=== PATIENT | female | born 1985 | race Caucasian/White ===

== ENCOUNTER 2017-01-20 16:12 | Emergency (ER) | payer OTHER ==
[~2017-01-20] VITALS: Ht 167.6 cm; Wt 132.4 kg
[~2017-01-20 16:12] MED LIST: ABILIFY5 M1 PO; ANT25 PO; ATIVAN2 MG PO; AUG500 PO; CLINDAMYCIN HC300 MG PO; COL100 PO; COL250 PO; DOXEPIN HCL10 MG PO; GABAPENTIN600 M1 PO; GLU500 PO; IBUPROFEN600 MG PO; IMI6I SC; IMITREX50 MG SC; KEFLEX500 MG PO; LAC PO; LIPI10 PO; LISINOPRIL PO; LISINOPRIL40 MG PO; METFORMIN HCL1000 MG PO; METFORMIN HCL500 MG PO; MIRTAZAPINE30 M2 PO; MYCOC TOP; NEU100 PO; NOR10T PO; NORCO1 TA2 PO; PERCOCET1 TA1 PO; PERCOCET1 TA2 PO; PRAZOSIN HYDROCH1 MG; PROAIR HFA0.09 MG/A1 INH; PROPRANOLOL HCL40 MG PO; TRAMADOL HCL50 MG PO; ULT50 PO; XARELTO10 M1 PO; ZES10 PO; ZES20 PO; ZIT250 PO; ZOF4 PO; ZOLOFT100 MG PO; ZOLOFT25 MG PO; [UNRECOGNIZED DRUG - OTHER]; [UNRECOGNIZED DRUG - OTHER] PO
[2017-01-20 16:25] VITALS: BP 112/50
== END 2017-01-20 17:38 | disposition home or self-care (01) ==
LOC: ED 16:12
DX: S93.401A Sprain of unspecified ligament of right ankle, initial encounter (principal); I10 Essential (primary) hypertension; E11.9 Type 2 diabetes mellitus without complications; Z88.8 Allergy status to other drugs, medicaments and biological substances; Z79.899 Other long term (current) drug therapy; X50.1XXA Overexertion from prolonged static or awkward postures, initial encounter; Y93.9 Activity, unspecified; Y92.89 Other specified places as the place of occurrence of the external cause; Y99.8 Other external cause status

== ENCOUNTER 2017-03-02 02:56 | Emergency (ER) | payer OTHER ==
[2017-03-02 03:49] LABS: BASOPHIL % 0.6 % (0-2); PLATELET COUNT 251 x10^3mcL (130-400)
[2017-03-02 03:54] LABS: RED CELL DISTRIBUTION WIDTH 15.2 % (11.5-14.5)
[2017-03-02 03:59] LABS: microscopic required? YES; urine erythrocyte 2+ (NEGATIVE)
[2017-03-02 04:02] LABS: CALCIUM 9.1 mg/dL (8.5-10.1); CARBON DIOXIDE 24.2 mmol/L (21-32); CHLORIDE SERUM 104 mmol/L (98-107); CREATININE SERUM 0.9 mg/dL (0.6-1.0); GFR1 > 60 mL/min; GLUCOSE SERUM 312 mg/dL (74-106); POTASSIUM SERUM 3.6 mmol/L (3.5-5.1); SODIUM SERUM 140 mmol/L (136-145)
[2017-03-02 04:06] LABS: ALKALINE PHOSPHATASE 99 U/L (46-116); ALT/SGPT 37 U/L (14-59); AMYLASE 26 U/L (25-115); AST/SGOT 14 U/L (15-37); BILIRUBIN TOTAL 0.24 mg/dL (0.20-1.00); LIPASE 218 IU/L (73-393); TOTAL PROTEIN, SERUM 6.8 g/dL (6.4-8.2)
[2017-03-02 04:08] LABS: ALBUMIN 3.2 g/dL (3.4-5.0)
[2017-03-02 05:00] VITALS: BP 120/60
== END 2017-03-02 05:00 | disposition home or self-care (01) ==
LOC: ED 02:56
PROVIDERS: Emergency Medicine
DX: R10.11 Right upper quadrant pain (principal); R11.2 Nausea with vomiting, unspecified; Z88.6 Allergy status to analgesic agent; Z88.8 Allergy status to other drugs, medicaments and biological substances
CPT/HCPCS: 36415; J1885

== ENCOUNTER 2017-03-07 18:49 | Inpatient (IN) | payer OTHER ==
[~2017-03-07] VITALS: Ht 167.6 cm; Wt 133.8 kg
[2017-03-07 20:42] LABS: BASOPHIL % 0.5 % (0-2); PLATELET COUNT 225 x10^3mcL (130-400)
[2017-03-07 20:43] LABS: CHLORIDE SERUM 105 mmol/L (98-107); POTASSIUM SERUM 3.6 mmol/L (3.5-5.1); SODIUM SERUM 139 mmol/L (136-145)
[2017-03-07 20:46] LABS: RED CELL DISTRIBUTION WIDTH 15.4 % (11.5-14.5)
[2017-03-07 21:36] LABS: CARBON DIOXIDE 23.5 mmol/L (21-32); CREATININE SERUM 0.9 mg/dL (0.6-1.0); GFR1 > 60 mL/min; GLUCOSE SERUM 238 mg/dL (74-106)
[2017-03-07 21:37] LABS: ALBUMIN 3.3 g/dL (3.4-5.0); ALKALINE PHOSPHATASE 93 U/L (46-116); ALT/SGPT 31 U/L (14-59); AST/SGOT 14 U/L (15-37); BILIRUBIN TOTAL 0.22 mg/dL (0.20-1.00); LIPASE 210 IU/L (73-393); TOTAL PROTEIN, SERUM 6.9 g/dL (6.4-8.2)
[2017-03-07] MEDS ORDERED: LANTUS SOLOS100 U/M1 SC (22:42)
[2017-03-08 00:38] LABS: T3 TOTAL 1.37 ng/mL
[2017-03-08 00:41] LABS: AMYLASE 27 U/L (25-115); CHOLESTEROL 164 mg/dL (<200); PHOSPHOROUS 3.6 mg/dL (2.5-4.9)
[2017-03-08 00:42] LABS: CHOLESTEROL/HDL RATIO 5.5; HDL CHOLESTEROL 30 mg/dL (40-60); TRIGLYCERIDES 503 mg/dL (<150)
[2017-03-08 00:45] VITALS: BP 140/84
[2017-03-08 01:05] LABS: FREE T4 1.31 ng/dL (0.76-1.46); FREE THYROXINE INDEX 3.9 ug/dL (1.4-4.5); T4(THYROXINE) 11.8 ug/dL (4.7-13.3)
[2017-03-08 06:01] VITALS: BP 102/56
[2017-03-08 06:33] LABS: BASOPHIL % 0.4 % (0-2); PLATELET COUNT 193 x10^3mcL (130-400)
[2017-03-08 06:52] LABS: RED CELL DISTRIBUTION WIDTH 15.1 % (11.5-14.5)
[2017-03-08 07:09] LABS: CALCIUM 8.2 mg/dL (8.5-10.1); CARBON DIOXIDE 26.8 mmol/L (21-32); CHLORIDE SERUM 107 mmol/L (98-107); CREATININE SERUM 0.7 mg/dL (0.6-1.0); GFR1 > 60 mL/min; GLUCOSE SERUM 174 mg/dL (74-106); MAGNESIUM 1.9 mg/dL (1.8-2.4); PHOSPHOROUS 4.2 mg/dL (2.5-4.9); POTASSIUM SERUM 3.9 mmol/L (3.5-5.1); SODIUM SERUM 141 mmol/L (136-145)
[2017-03-08 10:01] VITALS: BP 130/82
[2017-03-08 15:52] VITALS: BP 105/64
[2017-03-08 18:13] VITALS: BP 135/67
[2017-03-08 21:00] VITALS: BP 108/71
[2017-03-09 07:05] VITALS: BP 101/53
[2017-03-09 09:47] VITALS: BP 135/83
[2017-03-09 10:59] LABS: BASOPHIL % 0.2 % (0-2); PLATELET COUNT 188 x10^3mcL (130-400)
[2017-03-09 11:11] LABS: RED CELL DISTRIBUTION WIDTH 14.9 % (11.5-14.5)
[2017-03-09 11:12] LABS: MAGNESIUM 1.9 mg/dL (1.8-2.4); PHOSPHOROUS 3.3 mg/dL (2.5-4.9)
[2017-03-09 11:12] LABS: ALBUMIN 2.7 g/dL (3.4-5.0); ALKALINE PHOSPHATASE 62 U/L (46-116); ALT/SGPT 98 U/L (14-59); AST/SGOT 84 U/L (15-37); CALCIUM 8.4 mg/dL (8.5-10.1); CHLORIDE SERUM 109 mmol/L (98-107); CREATININE SERUM 0.7 mg/dL (0.6-1.0); GFR1 > 60 mL/min; GLUCOSE SERUM 149 mg/dL (74-106); POTASSIUM SERUM 3.7 mmol/L (3.5-5.1); SODIUM SERUM 142 mmol/L (136-145); TOTAL PROTEIN, SERUM 5.8 g/dL (6.4-8.2)
[2017-03-09 12:52] VITALS: BP 131/89
[2017-03-09 17:57] VITALS: BP 129/78
[2017-03-09 21:43] VITALS: BP 118/72
[2017-03-10 05:15] VITALS: BP 114/55
[2017-03-10 06:13] LABS: BASOPHIL % 0.3 % (0-2); PLATELET COUNT 169 x10^3mcL (130-400)
[2017-03-10 06:30] LABS: ALKALINE PHOSPHATASE 63 U/L (46-116); ALT/SGPT 80 U/L (14-59); AST/SGOT 38 U/L (15-37); BILIRUBIN TOTAL 0.6 mg/dL (0.20-1.00); CALCIUM 8.3 mg/dL (8.5-10.1); CHLORIDE SERUM 109 mmol/L (98-107); CREATININE SERUM 0.7 mg/dL (0.6-1.0); GFR1 > 60 mL/min; GLUCOSE SERUM 137 mg/dL (74-106); POTASSIUM SERUM 3.4 mmol/L (3.5-5.1); SODIUM SERUM 143 mmol/L (136-145)
[2017-03-10 06:32] LABS: ALBUMIN 2.7 g/dL (3.4-5.0); TOTAL PROTEIN, SERUM 5.7 g/dL (6.4-8.2)
[2017-03-10 06:39] LABS: RED CELL DISTRIBUTION WIDTH 15.3 % (11.5-14.5)
[2017-03-10 10:14] VITALS: BP 126/83
[2017-03-10] MEDS ORDERED: METFORMIN HCL1000 MG PO (11:10)
[2017-03-10] MEDS ORDERED: APAP/HYDROCODON1 T13 PO (11:11)
[2017-03-10] MEDS ORDERED: COLACE100 MG PO (11:12)
[2017-03-10] MEDS ORDERED: LAC PO (11:12)
[2017-03-10] MEDS ORDERED: LEVAQUIN500 M1 PO (11:13)
[2017-03-10] MEDS ORDERED: FLA500 PO (11:13)
[2017-03-10 11:38] VITALS: BP 126/83
== END 2017-03-10 12:35 | disposition home or self-care (01) | DRG 263 ==
LOC: ED 18:49 → DU 23:34 → MU 03-09 11:25
PROVIDERS: Emergency Medicine; Family Medicine; Surgery; ADMIT Family Medicine
PROC: 0FT44ZZ Resection of Gallbladder, Percutaneous Endoscopic Approach (ICD-10-PCS; principal; 2017-03-08 12:00)
DX: K81.0 Acute cholecystitis (principal); E43 Unspecified severe protein-calorie malnutrition; D68.69 Other thrombophilia; E11.65 Type 2 diabetes mellitus with hyperglycemia; K83.1 Obstruction of bile duct; E87.8 Other disorders of electrolyte and fluid balance, not elsewhere classified; G89.29 Other chronic pain; M54.9 Dorsalgia, unspecified; I10 Essential (primary) hypertension; F32.9 Major depressive disorder, single episode, unspecified; F41.9 Anxiety disorder, unspecified; E66.01 Morbid (severe) obesity due to excess calories; E78.5 Hyperlipidemia, unspecified; F39 Unspecified mood [affective] disorder; E83.51 Hypocalcemia; E78.1 Pure hyperglyceridemia; E87.6 Hypokalemia; Z87.442 Personal history of urinary calculi; Z68.42 Body mass index [BMI] 45.0-49.9, adult; Z79.4 Long term (current) use of insulin; Z79.84 Long term (current) use of oral hypoglycemic drugs; Z86.718 Personal history of other venous thrombosis and embolism; Z88.6 Allergy status to analgesic agent; Z90.49 Acquired absence of other specified parts of digestive tract; Z88.8 Allergy status to other drugs, medicaments and biological substances
CPT/HCPCS: 82962; 83880; 84439; 94150; J0330; J1170; J1200; J1610; J1644; J1815; J2175; J2250; J2270; J2310; J2405; J2543; J2704; J2710; J3010; J3490; J7030; Q0092

== ENCOUNTER 2017-03-20 21:26 | Emergency (ER) | payer OTHER ==
[~2017-03-20] VITALS: Ht 167.6 cm; Wt 131.5 kg
[~2017-03-20 21:26] MED LIST changes: +APAP/HYDROCODON1 T13 PO; +COLACE100 MG PO; +FLA500 PO; +LANTUS SOLOS100 U/M1 SC; +LEVAQUIN500 M1 PO
[2017-03-20 22:44] VITALS: BP 143/73
== END 2017-03-20 22:44 | disposition home or self-care (01) ==
LOC: ED 21:26
DX: N61.1 Abscess of the breast and nipple (principal); E11.9 Type 2 diabetes mellitus without complications; F32.1 Major depressive disorder, single episode, moderate; E66.01 Morbid (severe) obesity due to excess calories; R21 Rash and other nonspecific skin eruption
CPT/HCPCS: J2001

== ENCOUNTER 2017-03-22 02:03 | Emergency (ER) | payer OTHER ==
[2017-03-22 02:56] VITALS: BP 137/87
== END 2017-03-22 02:56 | disposition home or self-care (01) ==
LOC: ED 02:03
DX: N61.1 Abscess of the breast and nipple (principal); Z88.8 Allergy status to other drugs, medicaments and biological substances; Z88.6 Allergy status to analgesic agent

== ENCOUNTER 2017-03-23 02:01 | Emergency (ER) | payer OTHER ==
[~2017-03-23] VITALS: Ht 167.6 cm; Wt 132.4 kg
[2017-03-23 02:15] VITALS: BP 125/79
== END 2017-03-23 03:09 | disposition home or self-care (01) ==
LOC: ED 02:01
DX: Z48.00 Encounter for change or removal of nonsurgical wound dressing (principal)

== ENCOUNTER 2017-03-30 22:46 | Emergency (ER) | payer OTHER ==
[2017-03-31 04:11] VITALS: BP 130/94
== END 2017-03-31 04:11 | disposition home or self-care (01) ==
LOC: ED 22:46
DX: Z48.00 Encounter for change or removal of nonsurgical wound dressing (principal); I10 Essential (primary) hypertension; E11.9 Type 2 diabetes mellitus without complications; F99 Mental disorder, not otherwise specified; Z79.899 Other long term (current) drug therapy; Z88.8 Allergy status to other drugs, medicaments and biological substances

== ENCOUNTER 2017-04-10 17:05 | Emergency (ER) | payer OTHER ==
[2017-04-10 18:15] VITALS: BP 158/89
== END 2017-04-10 18:15 | disposition home or self-care (01) ==
LOC: ED 17:05
DX: L01.00 Impetigo, unspecified (principal); K52.9 Noninfective gastroenteritis and colitis, unspecified; B02.9 Zoster without complications; E11.9 Type 2 diabetes mellitus without complications; F99 Mental disorder, not otherwise specified; I10 Essential (primary) hypertension; Z79.4 Long term (current) use of insulin; Z79.84 Long term (current) use of oral hypoglycemic drugs; Z79.899 Other long term (current) drug therapy
CPT/HCPCS: Q0162

== ENCOUNTER 2017-04-25 19:03 | Emergency (ER) | payer OTHER ==
[2017-04-25 21:03] LABS: CALCIUM 9.1 mg/dL (8.5-10.1); CARBON DIOXIDE 25.5 mmol/L (21-32); CHLORIDE SERUM 103 mmol/L (98-107); CREATININE SERUM 0.8 mg/dL (0.6-1.0); GFR1 > 60 mL/min; GLUCOSE SERUM 262 mg/dL (74-106); SODIUM SERUM 138 mmol/L (136-145)
[2017-04-25 21:07] LABS: BASOPHIL % 0.5 % (0-2); PLATELET COUNT 239 x10^3mcL (130-400)
[2017-04-25 21:09] LABS: ALKALINE PHOSPHATASE 99 U/L (46-116); ALT/SGPT 28 U/L (14-59); AST/SGOT 13 U/L (15-37); BILIRUBIN TOTAL 0.3 mg/dL (0.20-1.00); TOTAL PROTEIN, SERUM 6.7 g/dL (6.4-8.2)
[2017-04-25 21:10] LABS: ALBUMIN 3.2 g/dL (3.4-5.0)
[2017-04-25 21:12] LABS: RED CELL DISTRIBUTION WIDTH 15.8 % (11.5-14.5)
[2017-04-25 23:34] VITALS: BP 122/80
== END 2017-04-25 23:34 | disposition home or self-care (01) ==
LOC: ED 19:03
PROVIDERS: Specialist
DX: N61.1 Abscess of the breast and nipple (principal); E11.9 Type 2 diabetes mellitus without complications; K21.9 Gastro-esophageal reflux disease without esophagitis; E28.2 Polycystic ovarian syndrome; M19.90 Unspecified osteoarthritis, unspecified site; F43.10 Post-traumatic stress disorder, unspecified; G43.909 Migraine, unspecified, not intractable, without status migrainosus; G62.9 Polyneuropathy, unspecified
CPT/HCPCS: 36415; 76641; 82962; J0696

== ENCOUNTER 2017-05-14 02:46 | Emergency (ER) | payer OTHER ==
[2017-05-14 06:26] VITALS: BP 115/72
== END 2017-05-14 06:26 | disposition home or self-care (01) ==
LOC: ED 02:46
DX: S93.402A Sprain of unspecified ligament of left ankle, initial encounter (principal); I10 Essential (primary) hypertension; E11.9 Type 2 diabetes mellitus without complications; G43.909 Migraine, unspecified, not intractable, without status migrainosus; G62.9 Polyneuropathy, unspecified; M46.90 Unspecified inflammatory spondylopathy, site unspecified; F43.10 Post-traumatic stress disorder, unspecified; E28.2 Polycystic ovarian syndrome; Z88.4 Allergy status to anesthetic agent; Z88.8 Allergy status to other drugs, medicaments and biological substances; X50.9XXA Other and unspecified overexertion or strenuous movements or postures, initial encounter; Y93.89 Activity, other specified; Y99.8 Other external cause status; Y92.89 Other specified places as the place of occurrence of the external cause

== ENCOUNTER 2017-05-31 02:49 | Emergency (ER) | payer OTHER ==
[2017-05-31 04:17] VITALS: BP 153/73
== END 2017-05-31 04:17 | disposition home or self-care (01) ==
LOC: ED 02:49
DX: J20.9 Acute bronchitis, unspecified (principal); Z88.6 Allergy status to analgesic agent; Z88.8 Allergy status to other drugs, medicaments and biological substances
CPT/HCPCS: J7613; J7644; Q0092

== ENCOUNTER 2017-06-22 13:27 | Emergency (ER) | payer OTHER ==
[~2017-06-22] VITALS: Ht 167.6 cm; Wt 131.5 kg
[2017-06-22 14:35] VITALS: BP 140/60
== END 2017-06-22 14:35 | disposition home or self-care (01) ==
LOC: ED 13:27
DX: L56.8 Other specified acute skin changes due to ultraviolet radiation (principal); I10 Essential (primary) hypertension; E11.9 Type 2 diabetes mellitus without complications; G62.9 Polyneuropathy, unspecified; Z79.4 Long term (current) use of insulin; Z79.84 Long term (current) use of oral hypoglycemic drugs; Z79.899 Other long term (current) drug therapy; Z88.6 Allergy status to analgesic agent; Z88.8 Allergy status to other drugs, medicaments and biological substances

== ENCOUNTER 2017-07-31 16:46 | Emergency (ER) | payer OTHER ==
[~2017-07-31] VITALS: Ht 170.2 cm; Wt 133.1 kg
[2017-07-31 19:31] VITALS: BP 103/67
== END 2017-07-31 19:31 | disposition home or self-care (01) ==
LOC: ED 16:46
DX: M79.601 Pain in right arm (principal); I10 Essential (primary) hypertension; E11.9 Type 2 diabetes mellitus without complications; Z79.4 Long term (current) use of insulin; Z88.6 Allergy status to analgesic agent; Z88.8 Allergy status to other drugs, medicaments and biological substances; V49.9XXA Car occupant (driver) (passenger) injured in unspecified traffic accident, initial encounter; Y93.89 Activity, other specified; Y92.89 Other specified places as the place of occurrence of the external cause; Y99.8 Other external cause status
CPT/HCPCS: Q0092

== ENCOUNTER 2017-08-27 19:59 | Emergency (ER) | payer OTHER ==
[~2017-08-27] VITALS: Ht 167.6 cm; Wt 135.6 kg
[2017-08-28 01:16] VITALS: BP 137/86
== END 2017-08-28 01:16 | disposition home or self-care (01) ==
LOC: ED 19:59
DX: M79.89 Other specified soft tissue disorders (principal); E11.9 Type 2 diabetes mellitus without complications; I10 Essential (primary) hypertension; Z79.4 Long term (current) use of insulin; Z88.6 Allergy status to analgesic agent
CPT/HCPCS: Q0092

== ENCOUNTER 2017-09-20 03:20 | Emergency (ER) | payer OTHER ==
[~2017-09-20] VITALS: Ht 167.6 cm; Wt 136.5 kg
[2017-09-20 03:24] VITALS: BP 147/90; Ht 167.6 cm; Wt 136.5 kg
== END 2017-09-20 05:24 | disposition left against medical advice (07) ==
LOC: ED 03:20
DX: Z53.21 Procedure and treatment not carried out due to patient leaving prior to being seen by health care provider (principal)

== ENCOUNTER 2017-10-15 02:18 | Emergency (ER) | payer OTHER ==
[~2017-10-15] VITALS: Ht 167.6 cm; Wt 133.8 kg
[2017-10-15 02:31] VITALS: Ht 167.6 cm; Wt 133.8 kg
[2017-10-15 06:28] VITALS: BP 146/72
== END 2017-10-15 06:28 | disposition home or self-care (01) ==
LOC: ED 02:18
DX: R22.32 Localized swelling, mass and lump, left upper limb (principal); E11.65 Type 2 diabetes mellitus with hyperglycemia; I10 Essential (primary) hypertension; M46.90 Unspecified inflammatory spondylopathy, site unspecified; Z88.6 Allergy status to analgesic agent; Z88.8 Allergy status to other drugs, medicaments and biological substances
CPT/HCPCS: 82962; J1815; Q0092

== ENCOUNTER 2018-01-28 16:05 | Emergency (ER) | payer OTHER ==
[~2018-01-28] VITALS: Ht 167.6 cm; Wt 131.1 kg
[2018-01-28 16:12] VITALS: BP 149/66; Ht 167.6 cm; Wt 131.1 kg
== END 2018-01-28 18:12 | disposition home or self-care (01) ==
LOC: ED 16:05
DX: J02.9 Acute pharyngitis, unspecified (principal); H92.03 Otalgia, bilateral; I10 Essential (primary) hypertension; E11.22 Type 2 diabetes mellitus with diabetic chronic kidney disease; N18.9 Chronic kidney disease, unspecified; G89.29 Other chronic pain; M54.9 Dorsalgia, unspecified; Z90.49 Acquired absence of other specified parts of digestive tract; Z90.89 Acquired absence of other organs; Z88.8 Allergy status to other drugs, medicaments and biological substances; Z88.6 Allergy status to analgesic agent
CPT/HCPCS: J0561; Q0092

== ENCOUNTER 2018-03-05 02:10 | Emergency (ER) | payer OTHER ==
[~2018-03-05] VITALS: Ht 167.6 cm; Wt 131.5 kg
[2018-03-05 02:18] VITALS: Ht 167.6 cm; Wt 131.5 kg
[2018-03-05 03:51] VITALS: BP 127/74
== END 2018-03-05 03:51 | disposition home or self-care (01) ==
LOC: ED 02:10
DX: M77.9 Enthesopathy, unspecified (principal); E11.9 Type 2 diabetes mellitus without complications; M46.90 Unspecified inflammatory spondylopathy, site unspecified; Z88.8 Allergy status to other drugs, medicaments and biological substances; Z88.6 Allergy status to analgesic agent; Z90.89 Acquired absence of other organs; Z90.49 Acquired absence of other specified parts of digestive tract

== ENCOUNTER 2018-04-10 17:46 | Emergency (ER) | payer OTHER ==
[~2018-04-10] VITALS: Ht 152.4 cm; Wt 119.7 kg
[2018-04-10 18:05] VITALS: Ht 152.4 cm; Wt 119.7 kg
[2018-04-10 21:53] VITALS: BP 130/89
== END 2018-04-10 21:53 | disposition home or self-care (01) ==
LOC: ED 17:46
PROC: 3E023NZ Introduction of Analgesics, Hypnotics, Sedatives into Muscle, Percutaneous Approach (ICD-10-PCS; principal; 2018-04-10)
DX: M54.6 Pain in thoracic spine (principal); E11.9 Type 2 diabetes mellitus without complications; N28.9 Disorder of kidney and ureter, unspecified; F99 Mental disorder, not otherwise specified
CPT/HCPCS: J1885

== ENCOUNTER 2018-04-21 02:17 | Emergency (ER) | payer OTHER ==
[~2018-04-21] VITALS: Ht 167.6 cm; Wt 131.5 kg
[2018-04-21 02:23] VITALS: Ht 167.6 cm; Wt 131.5 kg
[2018-04-21 04:01] VITALS: BP 116/74
== END 2018-04-21 04:50 | disposition home or self-care (01) ==
LOC: ED 02:17
DX: S93.602A Unspecified sprain of left foot, initial encounter (principal); F31.9 Bipolar disorder, unspecified; E11.40 Type 2 diabetes mellitus with diabetic neuropathy, unspecified; G43.909 Migraine, unspecified, not intractable, without status migrainosus; Z88.8 Allergy status to other drugs, medicaments and biological substances; W31.89XA Contact with other specified machinery, initial encounter; Y93.89 Activity, other specified; Y92.89 Other specified places as the place of occurrence of the external cause; Y99.8 Other external cause status
CPT/HCPCS: Q0092

== ENCOUNTER 2018-06-19 20:40 | Emergency (ER) | payer OTHER ==
[~2018-06-19] VITALS: Ht 167.6 cm; Wt 128.4 kg
[2018-06-19 20:57] VITALS: Ht 167.6 cm; Wt 128.4 kg
[2018-06-19 23:01] LABS: BASOPHIL % 0.5 % (0-2); PLATELET COUNT 219 x10^3mcL (130-400); RED CELL DISTRIBUTION WIDTH 14.4 % (11.5-14.5)
[2018-06-19 23:04] LABS: CALCIUM 8.9 mg/dL (8.5-10.1); CARBON DIOXIDE 24.6 mmol/L (21-32); CHLORIDE SERUM 100 mmol/L (98-107); CREATININE SERUM 0.7 mg/dL (0.6-1.0); GFR1 > 60 mL/min; GLUCOSE SERUM 259 mg/dL (74-106); POTASSIUM SERUM 3.4 mmol/L (3.5-5.1); SODIUM SERUM 134 mmol/L (136-145)
[2018-06-19 23:08] LABS: ALBUMIN 3.5 g/dL (3.4-5.0); ALKALINE PHOSPHATASE 96 U/L (46-116); ALT/SGPT 25 U/L (14-59); AST/SGOT 16 U/L (15-37); BILIRUBIN TOTAL 0.29 mg/dL (0.20-1.00); LIPASE 188 IU/L (73-393); TOTAL PROTEIN, SERUM 7.2 g/dL (6.4-8.2)
[2018-06-20 00:36] VITALS: BP 158/74
== END 2018-06-20 00:36 | disposition home or self-care (01) ==
LOC: ED 20:40
PROVIDERS: Emergency Medicine
DX: G89.29 Other chronic pain (principal); R10.13 Epigastric pain; F41.9 Anxiety disorder, unspecified; F31.9 Bipolar disorder, unspecified; G43.909 Migraine, unspecified, not intractable, without status migrainosus; E11.40 Type 2 diabetes mellitus with diabetic neuropathy, unspecified; Z90.89 Acquired absence of other organs; Z87.442 Personal history of urinary calculi; Z88.8 Allergy status to other drugs, medicaments and biological substances
CPT/HCPCS: J2270; J2405; J2765; J7030

== ENCOUNTER 2018-07-04 02:19 | Emergency (ER) | payer OTHER ==
[~2018-07-04] VITALS: Ht 167.6 cm; Wt 129.8 kg
[2018-07-04 02:25] VITALS: Ht 167.6 cm; Wt 129.8 kg
[2018-07-04 03:14] VITALS: BP 137/85
== END 2018-07-04 03:14 | disposition home or self-care (01) ==
LOC: ED 02:19
DX: N61.0 Mastitis without abscess (principal); G43.909 Migraine, unspecified, not intractable, without status migrainosus; F41.9 Anxiety disorder, unspecified; F31.9 Bipolar disorder, unspecified; Z98.890 Other specified postprocedural states; E11.40 Type 2 diabetes mellitus with diabetic neuropathy, unspecified; Z88.8 Allergy status to other drugs, medicaments and biological substances

== ENCOUNTER 2018-08-13 17:14 | Emergency (ER) | payer OTHER ==
[~2018-08-13] VITALS: Ht 167.6 cm; Wt 129.9 kg
[2018-08-13 17:18] VITALS: Ht 167.6 cm; Wt 129.9 kg
[2018-08-13 18:16] LABS: BASOPHIL % 0.8 % (0-2); PLATELET COUNT 218 x10^3mcL (130-400)
[2018-08-13 18:21] LABS: RED CELL DISTRIBUTION WIDTH 14.6 % (11.5-14.5)
[2018-08-13 18:25] LABS: CALCIUM 8.7 mg/dL (8.5-10.1); CARBON DIOXIDE 29.3 mmol/L (21-32); CHLORIDE SERUM 108 mmol/L (98-107); CREATININE SERUM 0.7 mg/dL (0.6-1.0); GFR1 > 60 mL/min; GLUCOSE SERUM 289 mg/dL (74-106); POTASSIUM SERUM 4.2 mmol/L (3.5-5.1); SODIUM SERUM 143 mmol/L (136-145)
[2018-08-13 18:33] LABS: ALKALINE PHOSPHATASE 113 U/L (46-116); ALT/SGPT 29 U/L (14-59); AST/SGOT 14 U/L (15-37); BILIRUBIN TOTAL 0.26 mg/dL (0.20-1.00); TOTAL PROTEIN, SERUM 6.7 g/dL (6.4-8.2)
[2018-08-13 18:34] LABS: ALBUMIN 3.3 g/dL (3.4-5.0)
[2018-08-13 20:06] VITALS: BP 106/72
== END 2018-08-13 20:06 | disposition home or self-care (01) ==
LOC: ED 17:14
PROVIDERS: Emergency Medicine
DX: R10.9 Unspecified abdominal pain (principal); R22.0 Localized swelling, mass and lump, head; R20.0 Anesthesia of skin; G43.909 Migraine, unspecified, not intractable, without status migrainosus; F32.9 Major depressive disorder, single episode, unspecified; F41.9 Anxiety disorder, unspecified; E11.40 Type 2 diabetes mellitus with diabetic neuropathy, unspecified; Z98.890 Other specified postprocedural states; Z88.6 Allergy status to analgesic agent; Z90.49 Acquired absence of other specified parts of digestive tract; Z90.89 Acquired absence of other organs; Z87.442 Personal history of urinary calculi
CPT/HCPCS: J2550; J7030

== ENCOUNTER 2018-09-09 02:13 | Emergency (ER) | payer OTHER ==
[~2018-09-09] VITALS: Ht 167.6 cm; Wt 129.7 kg
[2018-09-09 02:18] VITALS: Ht 167.6 cm; Wt 129.7 kg
[2018-09-09 04:38] VITALS: BP 117/76
== END 2018-09-09 04:38 | disposition home or self-care (01) ==
LOC: ED 02:13
DX: R07.89 Other chest pain (principal); R07.0 Pain in throat; E11.9 Type 2 diabetes mellitus without complications; G43.909 Migraine, unspecified, not intractable, without status migrainosus; F32.9 Major depressive disorder, single episode, unspecified; F41.9 Anxiety disorder, unspecified; E28.2 Polycystic ovarian syndrome; N83.201 Unspecified ovarian cyst, right side; Z87.442 Personal history of urinary calculi; Z98.890 Other specified postprocedural states; Z90.49 Acquired absence of other specified parts of digestive tract; Z88.6 Allergy status to analgesic agent; Z88.8 Allergy status to other drugs, medicaments and biological substances
CPT/HCPCS: J3010; Q0092

== ENCOUNTER 2018-11-09 00:50 | Emergency (ER) | payer OTHER ==
[~2018-11-09] VITALS: Ht 167.6 cm; Wt 127.9 kg
[2018-11-09 01:09] VITALS: Ht 167.6 cm; Wt 127.9 kg
[2018-11-09 03:37] LABS: BASOPHIL % 0.6 % (0-2); PLATELET COUNT 209 x10^3mcL (130-400); RED CELL DISTRIBUTION WIDTH 14.5 % (11.5-14.5)
[2018-11-09 05:33] LABS: CALCIUM 9.4 mg/dL (8.5-10.1); CARBON DIOXIDE 27.6 mmol/L (21-32); CHLORIDE SERUM 101 mmol/L (98-107); CREATININE SERUM 0.7 mg/dL (0.6-1.0); GFR1 > 60 mL/min; GLUCOSE SERUM 282 mg/dL (74-106); POTASSIUM SERUM 3.6 mmol/L (3.5-5.1); SODIUM SERUM 139 mmol/L (136-145)
[2018-11-09 05:37] LABS: ALKALINE PHOSPHATASE 85 U/L (46-116); ALT/SGPT 36 U/L (14-59); AST/SGOT 15 U/L (15-37); BILIRUBIN TOTAL 0.29 mg/dL (0.20-1.00); TOTAL PROTEIN, SERUM 6.8 g/dL (6.4-8.2)
[2018-11-09 05:52] LABS: ALBUMIN 3.3 g/dL (3.4-5.0)
[2018-11-09 06:52] VITALS: BP 110/82
== END 2018-11-09 06:53 | disposition home or self-care (01) ==
LOC: ED 00:50
PROVIDERS: Emergency Medicine
DX: R07.89 Other chest pain (principal); K14.0 Glossitis; B37.0 Candidal stomatitis; E11.9 Type 2 diabetes mellitus without complications; G43.909 Migraine, unspecified, not intractable, without status migrainosus; F32.9 Major depressive disorder, single episode, unspecified; Z90.89 Acquired absence of other organs; Z90.49 Acquired absence of other specified parts of digestive tract; Z87.442 Personal history of urinary calculi; Z98.890 Other specified postprocedural states; Z88.8 Allergy status to other drugs, medicaments and biological substances; Z88.6 Allergy status to analgesic agent
CPT/HCPCS: 83880; 85378; J2270; J2405; J7030; Q0092

== ENCOUNTER 2019-02-19 01:57 | Emergency (ER) | payer OTHER ==
[~2019-02-19] VITALS: Ht 167.6 cm; Wt 103.0 kg
[2019-02-19 02:06] VITALS: Ht 167.6 cm; Wt 103.0 kg
[2019-02-19 05:33] VITALS: BP 139/65
== END 2019-02-19 05:33 | disposition home or self-care (01) ==
LOC: ED 01:57
DX: K11.20 Sialoadenitis, unspecified (principal); R59.1 Generalized enlarged lymph nodes; E11.9 Type 2 diabetes mellitus without complications; R11.10 Vomiting, unspecified; E78.00 Pure hypercholesterolemia, unspecified; F32.9 Major depressive disorder, single episode, unspecified; Z88.6 Allergy status to analgesic agent; Z90.89 Acquired absence of other organs; Z98.890 Other specified postprocedural states; Z88.8 Allergy status to other drugs, medicaments and biological substances
CPT/HCPCS: J0690; J2765; J3010

== ENCOUNTER 2019-02-24 01:21 | Inpatient (IN) | payer OTHER ==
[~2019-02-24] VITALS: Ht 167.6 cm; Wt 126.3 kg
[2019-02-24 01:26] VITALS: Ht 167.6 cm; Wt 126.3 kg
--- NOTE | 2019-02-24 01:38 | NUR ---
MD MARC AT BEDSIDE PERFORMING MSE
--- NOTE | 2019-02-24 01:41 | NUR ---
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
[2019-02-24 02:04] LABS: BASOPHIL % 0.7 % (0-2); PLATELET COUNT 248 x10^3mcL (130-400); RED CELL DISTRIBUTION WIDTH 14.4 % (11.5-14.5)
[2019-02-24 02:08] LABS: CALCIUM 9.4 mg/dL (8.5-10.1); CHLORIDE SERUM 102 mmol/L (98-107); CREATININE SERUM 0.7 mg/dL (0.6-1.0); GFR1 > 60 mL/min; GLUCOSE SERUM 309 mg/dL (74-106); POTASSIUM SERUM 3.9 mmol/L (3.5-5.1); SODIUM SERUM 140 mmol/L (136-145)
--- NOTE | 2019-02-24 02:14 | NUR ---
MOM AT BEDSIDE
[2019-02-24 02:22] LABS: ALBUMIN 3.4 g/dL (3.4-5.0); ALKALINE PHOSPHATASE 90 U/L (46-116); ALT/SGPT 33 U/L (14-59); AST/SGOT 8 U/L (15-37); BILIRUBIN TOTAL 0.21 mg/dL (0.20-1.00); TOTAL PROTEIN, SERUM 6.9 g/dL (6.4-8.2)
--- NOTE | 2019-02-24 02:24 | NUR ---
PORTABLE US AT BEDSIDE
[2019-02-24] MEDS ORDERED: LANTUS SOLOS100 U/M1 SC (02:42)
[2019-02-24] MEDS ORDERED: LANTUS SOLOS100 U/M1 (02:42)
[2019-02-24] MEDS ORDERED: HUMULIN R100 U/1 M1 (02:44)
[2019-02-24] MEDS ORDERED: AMITRIPTYLINE100 M2 PO (02:44)
[2019-02-24] MEDS ORDERED: METFORMIN HYD1000 M2 PO (02:44)
[2019-02-24] MEDS ORDERED: MAGNESIUM OXID400 MG PO (02:45)
[2019-02-24] MEDS ORDERED: TOPAMAX50 M1 PO (02:45)
[2019-02-24] MEDS ORDERED: B COMPLEX1 SGL (02:46)
[2019-02-24] MEDS ORDERED: CYMBALTA60 M1 PO (02:46)
[2019-02-24] MEDS ORDERED: ATIVAN1 MG PO (02:46)
[2019-02-24] MEDS ORDERED: TRAZODONE50 M1 PO (02:47)
[2019-02-24] MEDS ORDERED: PERCOCET1 TA5 PO (02:47)
[2019-02-24] MEDS ORDERED: PRILOSEC OTC20 M1 PO (02:48)
[2019-02-24] MEDS ORDERED: LAMICTAL25 M2 PO (02:49)
[2019-02-24] MEDS ORDERED: LIPI20 PO (02:52)
--- NOTE | 2019-02-24 03:15 | NUR ---
PT IN POSITION OF COMFORT RESPS E/U MOM AT BEDSIDE CALL LIGHT WITHIN REACH
[2019-02-24 03:47] VITALS: BP 132/85
--- NOTE | 2019-02-24 03:58 | NUR ---
RECEIVED PT FROM ER VIA WC ACCOMPANIED WITH NURSE, PT SEEN, ALERT AND ORIENTED X 4, VERY VERBALLY RESPONSIVE, BREATHING EVEN AND UNLABORED, LUNG SOUNDS CLEAR, ON ROOM AIR WITH NO RESP DISTRESS NOTED, MEDSURG PT, DENIES CHEST PAIN, PULSES PALPABLE, NO EDEMA NOTED, AMBULATORY WITH STEADY GAIT, IVF INFUSING WELL WITH VANCOMYCIN, ABD OBESE WITH ACTIVE BS, NO BM AT THIS TIME, DENIES ANY PROBLEM WITH VOIDING, LEFT BREAST NOTED WITH PURPLISH AND REDNESS, NO OPEN WOUND NOTED AT THIS TIME, NO DISTRESS NOTED, WILL KEEP TO MONITOR.
[2019-02-24 06:22] VITALS: BP 110/65
--- NOTE | 2019-02-24 06:22 | NUR ---
PT ASLEEP AND APPEARS COMFORTABLE, MEDICATED WITH MORPHINE X 1 VIA IVP FOR LEFT BREAST PAIN WITH GOOD RELIEF, MORNING BLOOD SUGAR-275 MG/DL WITH RISS 6 UNITS, NO DISTRESS NOTED, WILL KEEP TO MONITOR.
--- NOTE | 2019-02-24 07:15 | NUR ---
REPORT RCD FROM BLAYNE GERARD. PATIENT ASLEEP, REGULAR RESPS. NS 10 ML/HR TO RAC INFUSING WITHOUT COMPLICATIONS. BED LOW, CALL LIGHT WITHIN REACH. WILL MONITOR.
--- NOTE | 2019-02-24 07:55 | NUR ---
RCD CALL FROM ARANZA IN PHARMACY REGARDING [employer] (TPA) QAM WHO WAS CONCERNED ORDER WAS NOT CORRECT. CALLED DR. CAMEJO, PER DR. CAMEJO, DISCONTINUE MEDICATION AT THIS TIME. ORDER DISCONTINUED PER MD TELEPHONE READBACK ORDER.
--- NOTE | 2019-02-24 08:00 | NUR ---
SHIFT ASSESSMENT PERFORMED AND DOCUMENTED. PATIENT REPORTING 9/10 PAIN TO LEFT BREAST AND 7/10 HEADACHE. WILL MEDICATE PER MAR. SITTING UP IN BED, MILD NAUSEA, WILL MEDICATE PER MAR.
--- NOTE | 2019-02-24 09:25 | NUR ---
DR. COLÓN AT BEDSIDE EXAMINING PATIENT AND EXPLAINING INCISION AND DRAINAGE OF LEFT BREAST ABSCESS, RISKS AND BENEFITS. PATIENT AGREES TO PROCEDURE AND SIGNS CONSENT.
[2019-02-24 10:09] VITALS: BP 112/557; BP 112/57
--- NOTE | 2019-02-24 10:36 | NUR ---
PATIENT ASLEEP, REGULAR RESPS. BED LOW, CALL LIGHT WITHIN REACH. WILL CONTINUE TO MONITOR.
--- NOTE | 2019-02-24 11:50 | NUR ---
BLOOD SUGAR CHECKED, 215, NO COVERAGE PATIENT NPO FOR PROCEDURE. DISCUSSED PRE-OP WIPES, HOW TO USE, GIVEN TO PATIENT TO DO WIPES. PATIENT DECLINED ASSISTANCE. PATIENT IN NO DISTRESS AT THIS TIME.
--- NOTE | 2019-02-24 13:15 | NUR ---
PATIENT ASLEEP, REGULAR RESPS. WILL MONITOR.
--- NOTE | 2019-02-24 15:00 | NUR ---
PATIENT PICKED UP FOR SURGERY. VANCOMYCIN INFUSING, TAKEN WITH PATIENT TO OPERATING ROOM.
--- NOTE | 2019-02-24 17:15 | NUR ---
RCD CALL FROM BLAYNE MARTÍNEZ IN SURGERY. PATIENT UNDERWENT INCISION AND DRAINAGE OF LEFT BREAST ABSCESS PLUS BIOPSY UNDER GENERAL ANESTHESIA, ONE INCISION PACKED WITH BETADINE SOAKED IODOFORM GAUZE AND COVERED WITH 4X4. EBL 20 ML. 500 ML NS GIVEN. BLOOD SUGAR 186, NO COVERAGE. IV TO RAC INTACT. PATIENT RCD 50 MG DEMEROL, O2 SAT 92% ON 4 L. PATIENT ASLEEP, PER TANYA. WILL AWAIT RETURN TO UNIT.
[2019-02-24 17:30] VITALS: BP 142/93
--- NOTE | 2019-02-24 19:20 | NUR ---
REPORT GIVEN TO BLAYNE HAGEN. PATIENT ASLEEP, REGULAR RESPS. IV TO RAC PATENT. BED LOW, CALL LIGHT WITHIN REACH. SURGICAL DRESSING INTACT. CARE ENDORSED.
--- NOTE | 2019-02-24 19:35 | NUR ---
RECEIVED REPORT FROM DAY SHIFT RN. PT RESTING IN BED WITH EYES CLOSED. AROUSABLE WITH VERBAL STIMULI. NO SOB ON O2 4L. NO C/O PAIN AT THIS TIME. NO DISTRESS NOTED. IV TO RAC, INTACT. DRESSING TO LEFT BREAST, CDI. SAFETY MEASURES IN PLACE. BED IN LOWEST POSITION. SIDE RAILS UP X2. INSTRUCTED PT TO USE THE CALL LIGHT FOR ASSISTANCE. CALL LIGHT WITHIN REACH.
--- NOTE | 2019-02-24 20:12 | NUR ---
PT C/O NAUSEA, PHENERGAN GIVEN.
[2019-02-24 21:11] VITALS: BP 125/84
--- NOTE | 2019-02-24 23:09 | NUR ---
C/O SHARP PAIN TO LEFT BREAST, MEDICATED WITH MORPHINE.
--- NOTE | 2019-02-25 01:10 | NUR ---
PT RESTING WITH EYES CLOSED. NO RESP DISTRESS. NO FACIAL GRIMACING. CALL LIGHT WITHIN REACH. WILL CONTINUE TO MONITOR.
[2019-02-25 06:03] VITALS: BP 117/77
[2019-02-25 06:29] LABS: BASOPHIL % 0.4 % (0-2); PLATELET COUNT 205 x10^3mcL (130-400)
[2019-02-25 06:33] LABS: RED CELL DISTRIBUTION WIDTH 15.6 % (11.5-14.5)
[2019-02-25 06:40] LABS: CALCIUM 8.6 mg/dL (8.5-10.1); CARBON DIOXIDE 25.5 mmol/L (21-32); CHLORIDE SERUM 108 mmol/L (98-107); CREATININE SERUM 0.6 mg/dL (0.6-1.0); GFR1 > 60 mL/min; GLUCOSE SERUM 183 mg/dL (74-106); POTASSIUM SERUM 3.7 mmol/L (3.5-5.1); SODIUM SERUM 142 mmol/L (136-145)
--- NOTE | 2019-02-25 06:59 | NUR ---
PT SLEPT AT LONG INTERVALS THROUGHOUT SHIFT. NO SOB ON 2L VIA NC. NO ACUTE SIGNIFICANT CHANGES TO REPORT. SAFETY MEASURES MAINTAINED. ALL NEEDS ATTENDED TO. CALL LIGHT WITHIN REACH. WILL ENDORSE CARE TO DAY SHIFT RN.
--- NOTE | 2019-02-25 07:35 | NUR ---
RECIEVED PT RESTING COMFORTABLY IN BED. DENIES ANY PAIN, DISTRESS OR SOB AT THIS TIME. A/O XY DENIES ANY FRYE OR DIZZINESS. MED SURG PT. LUNGS CTA, RR EQUAL AND UNLABORED. PT AMBULATORY. LEFT BREAST DRESSING CDI. IV INTACT AND PATENT IN RAC WITH 20 G. SAFETY PRECAUTIONS IN PLACE. CALL LIGHT WITHIN REACH. WILL MONITOR.
[2019-02-25 09:51] VITALS: BP 114/71
--- NOTE | 2019-02-25 10:30 | NUR ---
PT STABLE, IN BED ASLEEP. NO S/S OF ANY DISTRESS NOTED. SAFETY PRECAUTIONS IN PLACE. CALL LIGHT IN REACH. WILL MONITOR.
--- NOTE | 2019-02-25 14:00 | NUR ---
PT STABLE AT THSI TIME. DENIES ANY DISTRESS OR SOB. SAFETY PRECAUTIONS IN PLACE. CALL LIGHT WITHIN REACH. WILL MONITOR
[2019-02-25 18:06] VITALS: BP 114/62
--- NOTE | 2019-02-25 19:48 | NUR ---
PT RESTING COMFORTABLY IN BED. DENIES ANY PAIN, DISTRESS OR SOB AT THIS TIME. A/O X4 DENIES ANY FRYE OR DIZZINESS. MED SURG PT. LUNGS CTA, RR EQUAL AND UNLABORED. PT AMBULATORY. LEFT BREAST DRESSING CDI. IV INTACT AND PATENT IN RAC WITH 20 G. NO REDNESS OR INFLAMMATION NOTED. SAFETY PRECAUTIONS IN PLACE. CALL LIGHT WITHIN REACH. ENDORSED CARE TO NIGHT NURSE.
--- NOTE | 2019-02-25 19:50 | NUR ---
RECEIVED REPORT FROM DAY SHIFT RN. PT RESTING IN BED. NO SOB ON ROOM AIR. C/O LEFT BREAST BURNING PAIN 06/09 AND NAUSEA. WILL MEDICATE PER ORDER. IV TO RAC, INTACT. DRESSING TO LEFT BREAST, CDI. SAFETY MEASURES IN PLACE. BED IN LOWEST POSITION. SIDE RAILS UP X2. INSTRUCTED PT TO USE THE CALL LIGHT FOR ASSISTANCE. CALL LIGHT WITHIN REACH.
--- NOTE | 2019-02-25 20:06 | NUR ---
MORPHINE GIVEN FOR LEFT BREAST PAIN AND PHENERGAN FOR NAUSEA.
[2019-02-25 20:41] VITALS: BP 124/72
--- NOTE | 2019-02-26 04:25 | NUR ---
MORPHINE GIVEN FOR LEFT BREAST PAIN.
[2019-02-26 05:01] VITALS: BP 114/74
[2019-02-26 06:13] LABS: BASOPHIL % 0.2 % (0-2); PLATELET COUNT 184 x10^3mcL (130-400)
[2019-02-26 06:15] LABS: RED CELL DISTRIBUTION WIDTH 15.2 % (11.5-14.5)
[2019-02-26 06:45] LABS: CALCIUM 8.3 mg/dL (8.5-10.1); CARBON DIOXIDE 28.3 mmol/L (21-32); CHLORIDE SERUM 106 mmol/L (98-107); CREATININE SERUM 0.7 mg/dL (0.6-1.0); GFR1 > 60 mL/min; GLUCOSE SERUM 163 mg/dL (74-106); POTASSIUM SERUM 3.7 mmol/L (3.5-5.1); SODIUM SERUM 142 mmol/L (136-145)
--- NOTE | 2019-02-26 07:00 | NUR ---
ATIVAN GIVEN FOR ANXIETY
--- NOTE | 2019-02-26 07:10 | NUR ---
RECIEVED PT LAYING IN BED AND DENIES ANY DISTRESS OR SOB. A/O X4 DENIES ANY FRYE OR DIZZINESS. MED SURG PT. DENIES ANY CP OR PRESSSURE. LUNGS CTA, RR EQUAL AND UNLABORED. PT AMBULATORY. LEFT BREAST DRESSING CDI. SALINE LOCK TO RAC 20 G. INTACT AND PATENT WITH NO REDNESS OR INFLAMMATION. SAFETY PRECAUTIONS IN PLACE. CALL LIGHT WITHIN REACH. WILL MONITOR.
--- NOTE | 2019-02-26 07:30 | NUR ---
PT SLEPT IN LONG INTERVALS THROUGHOUT SHIFT. NO C/O SOB. NO SIGNIFICANT CHANGES TO REPORT. SAFETY MEASURES MAINTAINED. ALL NEEDS ATTENDED TO. DRESSING TO LEFT BREAST CHANGED. IRRIGATED LEFT BREAST WOUND WITH NS AND PACKED THE WOUND WITH IODOFORM. CALL LIGHT WITHIN REACH. ENDORSED CONTINUITY OF CARE TO DAY SHIFT RN.
--- NOTE | 2019-02-26 08:48 | NUR ---
PT C/O 10/10 LEFT BREAST PAIN AND NAUSEA. MEDICATED WITH MORPHINE AND PHENERGEN PER EMAR. WILL REASSESS.
--- NOTE | 2019-02-26 11:30 | NUR ---
PT STABLE AT THIS TIME. NO DISTRESS NOTED. NO SOB. SAFETY PRECAUTIONS IN PLACE. CALL LIGHT WITHIN REACH. WILL MONITOR
[2019-02-26 13:00] VITALS: BP 131/77
--- NOTE | 2019-02-26 15:20 | NUR ---
PT IV REMOVED FROM RAC WITH CATHETER INTACT. NO REDNES OR INFLAMMATION NOTED. NEW IV STARTED IN LAC 20G. INTACT AND PATENT WITH NO REDNESS OR INFLAMMATION.
[2019-02-26 18:11] VITALS: BP 114/67
--- NOTE | 2019-02-26 18:59 | NUR ---
PT REPORTS SHE IS ALLERGIC TO [place]OMATOES. NOTIFIED KITCHEN, CHARGE NURSE, AND UPDATED CHART.
--- NOTE | 2019-02-26 19:40 | NUR ---
RECEIVED REPORT FROM DAY SHIFT RN. PT RESTING IN BED. AA&O X4. NO SOB ON O2 2L VIA NC. NO DISTRESS NOTED. IV TO LAC, INTACT. DRESSING TO LEFT BREAST, CDI. SAFETY MEASURES IN PLACE. BED IN LOWEST POSITION. SIDE RAILS UP X2. INSTRUCTED PT TO USE THE CALL LIGHT FOR ASSISTANCE. CALL LIGHT WITHIN REACH.
--- NOTE | 2019-02-26 19:42 | NUR ---
PT STABLE. ALL CARES TOLERATED WELL. VS WNL NO DISTRESS OR SOB NOTED. IV INTACT AND PATENT WITH NO REDNESS OR INFLAMMATION NOTED. SAFETY PRECAUTIONS IN PLACE. CALL LIGHT WITHIN REACH, ENDORSED CARE TO NIGHT NURSE.
--- NOTE | 2019-02-26 21:22 | NUR ---
PT C/O SHARP PAIN TO LEFT BREAST, MORPHINE GIVEN.
[2019-02-26 21:35] VITALS: BP 108/63
--- NOTE | 2019-02-27 01:50 | NUR ---
PT C/O BURNING PAIN TO LEFT BREAST 07/09, MORPHINE GIVEN.
[2019-02-27 04:55] VITALS: BP 134/84
[2019-02-27 06:12] LABS: BASOPHIL % 0.7 % (0-2); PLATELET COUNT 177 x10^3mcL (130-400)
[2019-02-27 06:20] LABS: CALCIUM 8.4 mg/dL (8.5-10.1); CARBON DIOXIDE 25.9 mmol/L (21-32); CHLORIDE SERUM 108 mmol/L (98-107); CREATININE SERUM 0.7 mg/dL (0.6-1.0); GFR1 > 60 mL/min; GLUCOSE SERUM 182 mg/dL (74-106); POTASSIUM SERUM 3.6 mmol/L (3.5-5.1); SODIUM SERUM 144 mmol/L (136-145)
--- NOTE | 2019-02-27 06:42 | NUR ---
MORPHINE GIVEN FOR BURNING PAIN TO LEFT CHEST 9/10 AND PHENERGAN FOR NAUSEA.
[2019-02-27 07:04] LABS: RED CELL DISTRIBUTION WIDTH 15.5 % (11.5-14.5)
--- NOTE | 2019-02-27 07:30 | NUR ---
RECEIVED PT FROM ACCOUNTING POLICY CONSULTANT RN. A/OX4. DENIES CHEST PAIN/PRESSURE. RESPIRATIONS EQUAL AND UNLABORED ON RA. PT C/O NAUSEA UNRELIEVED BY ZOFRAN. PT DENIES ANY VOMITING AT THIS TIME. DRESSING TO LT BREAST CDI, NO DRAINAGE NOTED. PT C/O INCREASING PAIN /10 TO LT BREAST. COMFORT MEASURES PROVIDED. IV TO RAC SALINE LOCKED. NO REDNESS OR SWELLING NOTED. WILL CONTINUE TO MONITOR. CALL LIGHT IN REACH. BED IN LOWEST POSITION.
--- NOTE | 2019-02-27 07:30 | NUR ---
PT SLEPT AT INTERVALS THROUGHOUT SHIFT. NO C/O SOB. NO ACUTE DISTRESS NOTED. SAFETY MEASURES MAINTAINED. ALL NEEDS ATTENDED TO. ENDORSED CONTINUITY OF CARE TO DAY SHIFT RN.
--- NOTE | 2019-02-27 09:23 | NUR ---
PT IN BED SLEEPING. NO ACUTE RESP DISTRESS NOTED ON RA. PT C/O INCREASING PAIN TO LT BREAST I&D SITE. PT REFUSING NORCO. PT STATES SHE KNOWS IT WILL NOT HELP WITH PAIN AND SHE DOES NOT WANT ANYTHING THAT WONT HELP WITH PAIN. PT STATES SHE WILL WAIT FOR MORPHINE. GIVEN PO MEDS. TOLERATED WELL. DENIES N/V AT THIS TIME. WILL CONTINUE TO MONITOR. CALL LIGHT IN REACH. BED IN LOWEST POSITION.
[2019-02-27 09:25] VITALS: BP 103/61
[2019-02-27 10:09] VITALS: BP 103/61
--- NOTE | 2019-02-27 11:45 | NUR ---
PT SITTING UP IN BED. NO ACUTE RESP DISTRESS NOTED ON RA. DRESSING CHANGED TO LEFT BREAST WOUND. SITE CLEANSED WITH NS, PACKED WITH IODAFORM AND APPLIED DRY GAUZE. PT TOLERATED WELL. WOUND PHOTOS TAKEN. IV TO LAC REMOVED CATHETER INTACT. NO REDNESS OR SWELLING NOTED. PT GIVEN DISCHARGE INSTRUCTIONS. PT ENCOURAGED TO COME TO ER OR CONTACT PCP IF ANY WORSENING SYMPTOMS OF FEVER, DRAINAGE FROM SITE. PT VERBALIZED UNDERSTANDING. PT INFORMED OF FOLLOW UP APPOINTMENT WITH PCP ON 03/11 AT 12:30PM, PT INFORMED OF HOME HEALTH FOR WOUND CARE. PT VERBALIZED UNDERSTANDING. ALL QUESTIONS AND CONCERNS ADDRESSED. PT GETTING DRESSED TO BE TAKEN OFF FLOOR VIA WHEELCHAIR BY GUS.
== END 2019-02-27 12:00 | disposition home health service (06) | DRG 385 ==
LOC: ED 01:21 → MU 02:59
PROVIDERS: Emergency Medicine; Surgery; ADMIT Internal Medicine
PROC: 0HBUXZX (ICD-10-PCS; 2019-02-24)
PROC: 0H9U3ZZ Drainage of Left Breast, Percutaneous Approach (ICD-10-PCS; principal; 2019-02-24 10:00)
DX: N61.1 Abscess of the breast and nipple (principal); E11.40 Type 2 diabetes mellitus with diabetic neuropathy, unspecified; E66.01 Morbid (severe) obesity due to excess calories; G43.909 Migraine, unspecified, not intractable, without status migrainosus; F32.9 Major depressive disorder, single episode, unspecified; F31.9 Bipolar disorder, unspecified; M19.90 Unspecified osteoarthritis, unspecified site; E11.65 Type 2 diabetes mellitus with hyperglycemia; E78.5 Hyperlipidemia, unspecified; Z79.4 Long term (current) use of insulin; Z68.42 Body mass index [BMI] 45.0-49.9, adult; Z79.84 Long term (current) use of oral hypoglycemic drugs; Z88.6 Allergy status to analgesic agent; Z90.49 Acquired absence of other specified parts of digestive tract; Z87.11 Personal history of peptic ulcer disease
CPT/HCPCS: 82962; J1815; J2175; J2250; J2270; J2405; J2543; J2550; J3010; J3370; J7030; J7050; Q0092

== ENCOUNTER 2019-03-12 01:47 | Inpatient (IN) | payer OTHER ==
[~2019-03-12] VITALS: Ht 167.6 cm; Wt 127.0 kg
[~2019-03-12 01:47] MED LIST changes: +AMITRIPTYLINE100 M2 PO; +ATIVAN1 MG PO; +B COMPLEX1 SGL; +CYMBALTA60 M1 PO; +HUMULIN R100 U/1 M1; +LAMICTAL25 M2 PO; +LANTUS SOLOS100 U/M1; +LIPI20 PO; +MAGNESIUM OXID400 MG PO; +METFORMIN HYD1000 M2 PO; +PERCOCET1 TA5 PO; +PRILOSEC OTC20 M1 PO; +TOPAMAX50 M1 PO; +TRAZODONE50 M1 PO
[2019-03-12 01:57] VITALS: Ht 167.6 cm; Wt 127.0 kg
--- NOTE | 2019-03-12 03:30 | NUR ---
PT CAME IN FOR WORSENING WOUND AFTER HAVING AND I&D DONE 2 WEEKS AGO FOR A LEFT BREAST ABSCESS. PT REPORTS INCREASED DRAINAGE THAT IS GREEN, YELLOW WITH BLOODY DRAINAGE. PT DENIES FEVERS BUT REPORTS N/V. PT AWAKE, ALERT, RESPIRATIONS EVEN AND UNLABORED. SAFETY PRECAUTIONS IN PLACE
--- NOTE | 2019-03-12 03:36 | NUR ---
DR. CAREY IN FOR MSE
[2019-03-12 04:40] LABS: BASOPHIL % 0.8 % (0-2); PLATELET COUNT 249 x10^3mcL (130-400)
[2019-03-12 04:42] LABS: RED CELL DISTRIBUTION WIDTH 15.4 % (11.5-14.5)
--- NOTE | 2019-03-12 04:46 | NUR ---
WOUND CULTURE COLLECTED AND SENT TO LAB. PT AWAKE, ALERT, REMAINS FREE ROM S/S OF DISTRESS. RESPIRATIONS EVEN AND UNLABORED. SAFETY PRECAUTIONS IN PLACE
[2019-03-12 04:49] LABS: CALCIUM 9.3 mg/dL (8.5-10.1); CARBON DIOXIDE 26.3 mmol/L (21-32); CHLORIDE SERUM 102 mmol/L (98-107); CREATININE SERUM 0.8 mg/dL (0.6-1.0); GFR1 > 60 mL/min; GLUCOSE SERUM 314 mg/dL (74-106); POTASSIUM SERUM 3.5 mmol/L (3.5-5.1); SODIUM SERUM 141 mmol/L (136-145)
[2019-03-12 04:54] LABS: ALBUMIN 3.5 g/dL (3.4-5.0); ALKALINE PHOSPHATASE 82 U/L (46-116); ALT/SGPT 42 U/L (14-59); AST/SGOT 15 U/L (15-37); BILIRUBIN TOTAL 0.5 mg/dL (0.20-1.00); TOTAL PROTEIN, SERUM 7.1 g/dL (6.4-8.2)
--- NOTE | 2019-03-12 06:11 | NUR ---
PT REMAINS FREE FROM S/S OF DISTRESS. RESPIRATIONS EVEN AND UNLABORED. AWAKE, ALERT. SAFETY PRECAUTIONS IN PLACE
--- NOTE | 2019-03-12 07:20 | NUR ---
ATTEMPTED TO GIVE REPORT TO CARLOS AND WAS TOLD TO CALL BACK. REPORT GIVEN TO ANDI JOINER HELPER.
--- NOTE | 2019-03-12 07:44 | NUR ---
PT ADMIT TO MS GAVE REPORT TO CARLOS GOING TO ROOM 202B
--- NOTE | 2019-03-12 08:15 | NUR ---
RECEIVED PT FROM ER. ADMISSION HISTORY AND ASSESSMENT IS DONE. PT IS STABLE. SAFTEY PRECAUTIONS ARE IN PLACE. WILL MONITOR.
[2019-03-12 09:00] VITALS: BP 140/105
--- NOTE | 2019-03-12 11:06 | NUR ---
PT WAS C/O PAIN AT THE LEFT BREAST AREA,07/09. ADMINISTERED MORPHINE IV 1MG ORDERED. REASSESSED NOW AND PT IS SLEEPING THIS TIME.
[2019-03-12 11:29] VITALS: BP 140/100
--- NOTE | 2019-03-12 13:44 | NUR ---
DRESSING CHANGE DONE TO LEFT BREAST. CLEAN WITH WOUND CLEANSER AND PACK WITH IDOFORM GUAZE AND COVERED WITH DRY GAUZE DRESSING. PT DENIES PAIN.
--- NOTE | 2019-03-12 14:00 | NUR ---
PT IS STABLE, SLEEPING THIS TIME, DENIES PAIN. HAD LUNCH.
--- NOTE | 2019-03-12 18:00 | NUR ---
PT C/O PAIN AT THE LEFT WOUND AREA,04/08. MEDICATED PT WITH MORHINE IV ORDERED AT 1730 AND REASSESSED NOW AND PT IS SLEEPING.
[2019-03-12 18:02] VITALS: BP 119/78
--- NOTE | 2019-03-12 19:05 | NUR ---
PT RESTING IN BED COMFORTABLY. DENIES ANY PAIN. STABLE. GAVE REPORT TO HYPERION DEVELOPER NURSE.
--- NOTE | 2019-03-12 19:40 | NUR ---
Awake and verbally responsive. No respiratory distress noted on room air. Denies pain at this time. Left breast wound with dressing intact. Will cont.to monitor. Call light within reach.
[2019-03-12 21:24] VITALS: BP 112/75
--- NOTE | 2019-03-13 04:17 | NUR ---
Afebrile. No significant change in condition noted. Pain controlled. Cont.on IV zosyn. Pending surgery consult.
[2019-03-13 05:13] VITALS: BP 110/70
--- NOTE | 2019-03-13 07:30 | NUR ---
RECEIVED PT FROM DEBURRER MACHINE. PT AWAKE, ALERT A/OX4. PT ON ROOM AIR WITH NO RESP DISTRESS NOTED. IV ACCESS LAC C/D/I. PT DENIES CHEST PAIN OR HEADACHE. PT REPORTS PAIN 10/10 TO LEFT BREAST AREA S/P I&D ON 02/24/19. WILL MEDICATE PRN. PERIPHERAL PULSES PALPABLE, NO EDEMA NOTED. ACTIVE BOWEL SOUNDS NOTED. NO ISSUES REPORTED WITH ELIMINATION AT THIS TIME. PT AMBULATES. SAFETY MEASURES IN PLACE, BED LOW AND LOCKED. CALL LIGHT WITHIN REACH.
[2019-03-13 07:40] VITALS: BP 115/74
--- NOTE | 2019-03-13 08:21 | NUR ---
PT COMPLAINING OF PAIN TO LEFT BREAST 07/09. MORPHINE 1MG ADMINISTERED IVP ORDERED (SEE EMAR). WILL MONITOR.
--- NOTE | 2019-03-13 08:58 | NUR ---
PT ASLEEP WITH NO DISCOMFORT NOTED. BREATHING EVEN AND UNLABORED.
--- NOTE | 2019-03-13 12:00 | NUR ---
DUE MEDICATIONS ADMINISTERED. PT ASLEEP BUT AROUSABLE AT THIS TIME. NO ACUTE DISTRESS OR DISCOMFORT NOTED. SAFETY MAINTAINED.
--- NOTE | 2019-03-13 13:45 | NUR ---
PT COMPLAINING OF PAIN TO BREAST. MORPHINE ADMINISTERED ORDERED PRN (SEE EMAR). PT REPORTS MORPHINE IS THE ONLY MEDICINE THAT "EVEN TOUCHES THE PAIN". PT REPORTS PAIN 10/10. WOUND CLEANSED AND PACKED ORDERED. PT TOLERATED WELL. SAFETY MEASURES MAINTAINED. WILL MONITOR.
--- NOTE | 2019-03-13 14:29 | NUR ---
PT AWAKE IN BED WATCHING TV. PT STATES PAIN IS BETTER. NO ACUTE DISTRESS OR DISCOMFORT AT THIS TIME.
--- NOTE | 2019-03-13 16:55 | NUR ---
PT COMPLAINING OF NAUSEA, ASKING FOR MEDICATION. PHENERGAN ADMINISTERED ORDERED PRN (SEE EMAR). WILL CONT TO MONITOR.
[2019-03-13 17:05] VITALS: BP 118/76
--- NOTE | 2019-03-13 18:29 | NUR ---
PT STABLE AT THIS TIME. ALL NEEDS MET THROUGHOUT SHIFT. NO ACUTE DISTRESS AT THIS TIME. WILL CONTINUE TO MONITOR AND ENDORSE CARE TO MANAGER ASSET MANAGEMENT.
--- NOTE | 2019-03-13 19:00 | NUR ---
RECEIVED PT IN BED RESTING.NO ACUTE RESPIRATORY DISTRESS NOTED.DENIES ANY PAIN AT THIS TIME. WOUND TO LEFT BREAST COVERED WITH DRESSING AND IODOFORM,CDI. IV SITE PATENT AND INTACT. BED IN LOWEST POSITION,CALL LIGHT WITHIN REACH. WILL CONTINUE TO MONITOR.
--- NOTE | 2019-03-13 20:39 | NUR ---
PT C/O LEFT BREAST PAIN 06/09. MEDICATED MORPHINE 1MG IVP ORDERED. WILL CONTINUE TO MONITOR.
[2019-03-13 20:55] VITALS: BP 100/63
--- NOTE | 2019-03-13 21:22 | NUR ---
PT C/O NAUSEA. MEDIACTED PHENERGAN 12.5MG IV ORDERED. WILL CONTINUE TO MONITOR.
--- NOTE | 2019-03-14 05:18 | NUR ---
BS 58. RECHECKED BS 70. GAVE FOOD AND JUICE. PT AAOX4. NO DIZZINESS NOTED.C/O LEFT BREAST PAIN 06/09. WILL MEDICATE ORDERED.BED IN LOWEST POSITION,DEJAH LIGHT WITHIN REACH. WILL CONTINUE TO MONITOR.
[2019-03-14 05:39] VITALS: BP 124/86
--- NOTE | 2019-03-14 05:42 | NUR ---
MEDICATED MORPHINE 1MG FOR LEFT BREAST PAIN. WILL CONTINUE TO MONITOR.
[2019-03-14 06:31] LABS: CALCIUM 8.8 mg/dL (8.5-10.1); CARBON DIOXIDE 27.8 mmol/L (21-32); CHLORIDE SERUM 110 mmol/L (98-107); CREATININE SERUM 0.7 mg/dL (0.6-1.0); GFR1 > 60 mL/min; GLUCOSE SERUM 66 mg/dL (74-106); POTASSIUM SERUM 3.4 mmol/L (3.5-5.1); SODIUM SERUM 145 mmol/L (136-145)
[2019-03-14 06:49] LABS: BASOPHIL % 0.4 % (0-2); PLATELET COUNT 224 x10^3mcL (130-400)
--- NOTE | 2019-03-14 07:05 | NUR ---
PT RESTING IN BED. EASILY AROUSABLE TO VERBAL STIMULI. AAOX4. SPEECH CLEAR AND APPROPRIATE. ON RA. CHEST EXPANSION SYMM. NO SOB. NO COUGH. NO CP OR PRESSURE. DRESSING TO LEFT BREAST CDI. LAC PERIPHERAL IV SITE WNL. BED IN LOWEST POSITION, CALL LIGHT WITHIN REACH.
[2019-03-14 07:17] LABS: RED CELL DISTRIBUTION WIDTH 15.1 % (11.5-14.5)
--- NOTE | 2019-03-14 07:25 | NUR ---
CARE ENDORSED TO DAY NURSE STACY.
--- NOTE | 2019-03-14 09:30 | NUR ---
PT C/O NAUSEA. ABLE TO EAT HALF OF MORNING CEREAL. NO VOMITTING.
--- NOTE | 2019-03-14 09:36 | NUR ---
10/10 LEFT BREAST PAIN, ACHING. NONRADIATING. WILL MEDICATE PER EMAR
[2019-03-14 09:52] VITALS: BP 114/79
--- NOTE | 2019-03-14 10:51 | NUR ---
DR. CAMEJO AT BEDSIDE SPEAKING WITH PT. ALL QUESTIONS ADDRESSED
--- NOTE | 2019-03-14 14:05 | NUR ---
9/10 LEFT BREAST PAIN, ACHING. NONRADIATING.
--- NOTE | 2019-03-14 14:30 | NUR ---
LEFT BREAST WOUND CARE PERFORMED PER RECOMMENDATIONS. DRESSING CDI.
--- NOTE | 2019-03-14 15:26 | NUR ---
RECEIVED PT IN BED. RESP EQUAL AND UNLABORED, MODERATE PAIN TO LEFT BREAST. WILL CONTINUE TO MONITOR
--- NOTE | 2019-03-14 16:13 | NUR ---
RECEIVED PATIENT FROM BLAYNE TOM.
[2019-03-14 16:36] VITALS: BP 121/81
--- NOTE | 2019-03-14 17:21 | NUR ---
PATIENT IN BED RESTING. STATES THAT SHE IS FEELING SLIGHT NAUSEA, NO EPISODES OF VOMITTING. PRN PHERNERGAN IVP GIVEN. FAMILY AT BEDSIDE. WILL CONTINUE TO MONITOR NO OTHER COMPLAINTS AT THIS TIME. CALL LIGHT IN REACH.
[2019-03-14 17:42] VITALS: BP 121/81
--- NOTE | 2019-03-14 18:05 | NUR ---
CALLED AND SPOKE TO TO VERIFY DISCHARGE ORDER HE PLACED. SAYS PT IS OKAY TO DISCHARGE HOME TODAY. CALLED KARTHIKEYAN(PEDIATRIC CLINICAL DIETICIAN) AND MADE HER AWARE OF PT DISCHARGE HOME AND SHE SAYS PT IS OKAY TO DISCHARGE HOME AND THAT PT HAD ALREADY SIGNED HOMELESS WAIVER THROUGH [employer]UD[employer] (POLICE ACADEMY INSTRUCTOR), RESOURCES WERE PROVIDED BY THE POLICE ACADEMY INSTRUCTOR. BLAINE CISNEROS ASSIGNED TO THIS PT MADE AWARE OF ABOVE AND ALSO MADE HIM AWARE TO PROVIDE PT MATERIALS FOR DRESSING FOR HER WOUND.
--- NOTE | 2019-03-14 18:51 | NUR ---
PATIENT CLEARED FOR DISCHARGE PER DR CAMEJO & MICHAEL NOLAND/LÓPEZ REYNA. MICHAEL STATES PATIENT SIGNED HOMELESS WAIVER, ORIGINAL IN CHART. NOTIFIED PATIENT WHO STATED THAT SHE DID NOT SIGN WAIVER. PATIENT UPSET THAT SHE WILL BE DISCHARGED TONIGHT, SPOKE W DR CAMEJO WHO CONFIRMED THAT HE SPOKE WITH PATIENT TO BE DISCHARGED TODAY AND PATIENT AGREED. PRN MORPHINE 1 MG GIVEN TO PATIENT FOR WOUND PAIN. WILL ENDORSE TO ONCOMING NURSE THAT PATIENT REQUIRES SUPPLIES FOR SELF WOUND CARE CHANGE. DISCHARGE PACKET CREATED. CALL LIGHT IN REACH.
--- NOTE | 2019-03-14 19:27 | NUR ---
DISCHARGE PT HOME.ALL DISCHARGE INSTRUCTIONS AND PRESCRIPTION GIVEN.WOUND CARE SUPPLIES PROVIDED.HEALTH TEACHINGS PROVIDED REGARDING PROPER WOUND CARE AND VERBALIZED UNDERSTANDING.ALL BELONGINGS SENT WITH PT.D/C IV TO LAC.NO BLEEDING NOTED.ADVISED TO GO TO NEAREST ER WHEN SHE NOTICED DISCHARGES.REDNESS AROUND WOUND SITE AND FOUL ODOR.ALL NEEDS MET.IN NO DISTRESS.
== END 2019-03-14 19:25 | disposition home or self-care (01) | DRG 721 ==
LOC: ED 01:47 → DU 06:06 → MU 06:06
PROVIDERS: Emergency Medicine; ADMIT Internal Medicine
DX: T81.41XA Infection following a procedure, superficial incisional surgical site, initial encounter (principal); E11.40 Type 2 diabetes mellitus with diabetic neuropathy, unspecified; E11.65 Type 2 diabetes mellitus with hyperglycemia; F32.9 Major depressive disorder, single episode, unspecified; I10 Essential (primary) hypertension; G43.909 Migraine, unspecified, not intractable, without status migrainosus; F41.9 Anxiety disorder, unspecified; E66.9 Obesity, unspecified; N61.1 Abscess of the breast and nipple; Y83.8 Other surgical procedures as the cause of abnormal reaction of the patient, or of later complication, without mention of misadventure at the time of the procedure; Z79.4 Long term (current) use of insulin; Z90.49 Acquired absence of other specified parts of digestive tract; Z88.8 Allergy status to other drugs, medicaments and biological substances; Z88.6 Allergy status to analgesic agent; Z68.39 Body mass index [BMI] 39.0-39.9, adult; Y92.89 Other specified places as the place of occurrence of the external cause
CPT/HCPCS: 82962; G0378; J2270; J2405; J2543; J2550; J7030; J7040

== ENCOUNTER 2019-03-26 09:49 | Inpatient (IN) | payer OTHER ==
[~2019-03-26] VITALS: Ht 167.6 cm; Wt 125.7 kg
[2019-03-26 09:55] VITALS: Ht 167.6 cm; Wt 125.7 kg
[2019-03-26 10:37] LABS: BASOPHIL % 0.8 % (0-2); PLATELET COUNT 227 x10^3mcL (130-400)
[2019-03-26] MEDS ORDERED: KROGER NIC21 MG/24 H TOP (10:39)
[2019-03-26 10:40] LABS: RED CELL DISTRIBUTION WIDTH 15.1 % (11.5-14.5)
[2019-03-26 10:43] LABS: UA SPECIFIC GRAVITY 1.025 (1.005-1.035); microscopic required? YES; urine erythrocyte 2+ (NEGATIVE)
[2019-03-26 11:08] LABS: CALCIUM 9.8 mg/dL (8.5-10.1); CARBON DIOXIDE 24.8 mmol/L (21-32); CHLORIDE SERUM 100 mmol/L (98-107); CREATININE SERUM 0.7 mg/dL (0.6-1.0); GFR1 > 60 mL/min; GLUCOSE SERUM 330 mg/dL (74-106); POTASSIUM SERUM 3.9 mmol/L (3.5-5.1); SODIUM SERUM 137 mmol/L (136-145)
[2019-03-26 11:13] LABS: ALBUMIN 3.7 g/dL (3.4-5.0); ALKALINE PHOSPHATASE 108 U/L (46-116); ALT/SGPT 33 U/L (14-59); AST/SGOT 8 U/L (15-37); BILIRUBIN TOTAL 0.22 mg/dL (0.20-1.00); TOTAL PROTEIN, SERUM 7.6 g/dL (6.4-8.2)
[2019-03-26 12:50] VITALS: BP 145/87
[2019-03-26 17:07] VITALS: BP 128/88
[2019-03-26 21:09] VITALS: BP 127/82
[2019-03-27 05:28] VITALS: BP 126/71
[2019-03-27 06:26] LABS: BASOPHIL % 0.4 % (0-2); PLATELET COUNT 191 x10^3mcL (130-400)
[2019-03-27 06:41] LABS: CALCIUM 9.3 mg/dL (8.5-10.1); CARBON DIOXIDE 23.5 mmol/L (21-32); CHLORIDE SERUM 106 mmol/L (98-107); CREATININE SERUM 0.7 mg/dL (0.6-1.0); GFR1 > 60 mL/min; GLUCOSE SERUM 177 mg/dL (74-106); POTASSIUM SERUM 3.8 mmol/L (3.5-5.1); SODIUM SERUM 143 mmol/L (136-145)
[2019-03-27 07:01] LABS: RED CELL DISTRIBUTION WIDTH 15.4 % (11.5-14.5)
[2019-03-27 08:09] VITALS: BP 124/78
[2019-03-27 11:45] VITALS: BP 122/68
[2019-03-27 15:40] VITALS: BP 159/85
[2019-03-27 16:38] VITALS: BP 159/85
== END 2019-03-27 18:06 | disposition home health service (06) | DRG 385 ==
LOC: ED 09:49 → MU 11:25
PROVIDERS: Emergency Medicine; ADMIT Internal Medicine
DX: N61.1 Abscess of the breast and nipple (principal); E11.65 Type 2 diabetes mellitus with hyperglycemia; E66.01 Morbid (severe) obesity due to excess calories; F31.9 Bipolar disorder, unspecified; I10 Essential (primary) hypertension; Z79.4 Long term (current) use of insulin; Z68.42 Body mass index [BMI] 45.0-49.9, adult; Z79.84 Long term (current) use of oral hypoglycemic drugs; Z88.8 Allergy status to other drugs, medicaments and biological substances; Z90.49 Acquired absence of other specified parts of digestive tract; Z83.3 Family history of diabetes mellitus; Z82.49 Family history of ischemic heart disease and other diseases of the circulatory system; G43.909 Migraine, unspecified, not intractable, without status migrainosus
CPT/HCPCS: 82962; G0378; J0696; J1815; J2270; J2405; J2543; J2550; J7050; Q0092

== ENCOUNTER 2019-04-09 01:09 | Emergency (ER) | payer OTHER ==
[~2019-04-09] VITALS: Ht 167.6 cm; Wt 12.9 kg
[~2019-04-09 01:09] MED LIST changes: +KROGER NIC21 MG/24 H TOP
[2019-04-09 01:19] VITALS: Ht 167.6 cm; Wt 12.9 kg
[2019-04-09 07:43] VITALS: BP 113/75
== END 2019-04-09 07:43 | disposition home or self-care (01) ==
LOC: ED 01:09
DX: L02.31 Cutaneous abscess of buttock (principal); E11.9 Type 2 diabetes mellitus without complications; G43.909 Migraine, unspecified, not intractable, without status migrainosus; F32.9 Major depressive disorder, single episode, unspecified; F41.9 Anxiety disorder, unspecified; Z90.89 Acquired absence of other organs; Z90.49 Acquired absence of other specified parts of digestive tract; Z98.890 Other specified postprocedural states; Z88.6 Allergy status to analgesic agent; Z88.8 Allergy status to other drugs, medicaments and biological substances
CPT/HCPCS: J2001

== ENCOUNTER 2019-04-13 01:19 | Emergency (ER) | payer OTHER ==
[~2019-04-13] VITALS: Ht 167.6 cm; Wt 127.5 kg
[2019-04-13 03:20] VITALS: BP 131/88
== END 2019-04-13 03:20 | disposition home or self-care (01) ==
LOC: ED 01:19
DX: L02.31 Cutaneous abscess of buttock (principal); R30.0 Dysuria; R05 Cough; R07.89 Other chest pain; E11.9 Type 2 diabetes mellitus without complications; G43.909 Migraine, unspecified, not intractable, without status migrainosus; F41.8 Other specified anxiety disorders; F17.210 Nicotine dependence, cigarettes, uncomplicated; Z90.49 Acquired absence of other specified parts of digestive tract; Z90.89 Acquired absence of other organs; Z88.6 Allergy status to analgesic agent; Z88.8 Allergy status to other drugs, medicaments and biological substances

== ENCOUNTER 2019-04-26 13:19 | Emergency (ER) | payer OTHER ==
[~2019-04-26] VITALS: Ht 167.6 cm; Wt 112.0 kg
[2019-04-26 13:22] VITALS: Ht 167.6 cm; Wt 112.0 kg
[2019-04-26 16:36] LABS: BASOPHIL % 0.6 % (0-2); PLATELET COUNT 261 x10^3mcL (130-400)
[2019-04-26 16:43] LABS: CALCIUM 9.6 mg/dL (8.5-10.1); CARBON DIOXIDE 22.8 mmol/L (21-32); CHLORIDE SERUM 103 mmol/L (98-107); CREATININE SERUM 0.6 mg/dL (0.6-1.0); GFR1 > 60 mL/min; GLUCOSE SERUM 278 mg/dL (74-106); POTASSIUM SERUM 4.3 mmol/L (3.5-5.1); SODIUM SERUM 138 mmol/L (136-145)
[2019-04-26 16:44] LABS: RED CELL DISTRIBUTION WIDTH 16.8 % (11.5-14.5)
[2019-04-26 16:47] LABS: ALBUMIN 3.6 g/dL (3.4-5.0); ALKALINE PHOSPHATASE 79 U/L (46-116); ALT/SGPT 28 U/L (14-59); AST/SGOT 20 U/L (15-37); BILIRUBIN TOTAL 0.28 mg/dL (0.20-1.00); TOTAL PROTEIN, SERUM 7.3 g/dL (6.4-8.2)
[2019-04-26 18:09] VITALS: BP 152/96
== END 2019-04-26 18:09 | disposition home or self-care (01) ==
LOC: ED 13:19
PROVIDERS: Emergency Medicine
DX: L02.215 Cutaneous abscess of perineum (principal); G43.909 Migraine, unspecified, not intractable, without status migrainosus; F41.9 Anxiety disorder, unspecified; F31.9 Bipolar disorder, unspecified; E11.40 Type 2 diabetes mellitus with diabetic neuropathy, unspecified; M19.90 Unspecified osteoarthritis, unspecified site; Z90.89 Acquired absence of other organs; Z90.49 Acquired absence of other specified parts of digestive tract; Z98.890 Other specified postprocedural states; Z87.442 Personal history of urinary calculi; Z88.6 Allergy status to analgesic agent; Z91.048 Other nonmedicinal substance allergy status; Z87.19 Personal history of other diseases of the digestive system
CPT/HCPCS: J2543

== ENCOUNTER 2019-06-18 18:41 | Emergency (ER) | payer OTHER ==
[~2019-06-18] VITALS: Ht 167.6 cm; Wt 122.5 kg
[2019-06-18 18:47] VITALS: Ht 167.6 cm; Wt 122.5 kg
[2019-06-18 20:19] VITALS: BP 131/84
== END 2019-06-18 20:19 | disposition home or self-care (01) ==
LOC: ED 18:41
DX: N64.4 Mastodynia (principal); L53.9 Erythematous condition, unspecified; R22.2 Localized swelling, mass and lump, trunk; E11.9 Type 2 diabetes mellitus without complications; J45.909 Unspecified asthma, uncomplicated; F32.9 Major depressive disorder, single episode, unspecified; F41.9 Anxiety disorder, unspecified; E28.2 Polycystic ovarian syndrome; Z90.49 Acquired absence of other specified parts of digestive tract; Z90.89 Acquired absence of other organs; Z88.8 Allergy status to other drugs, medicaments and biological substances; Z88.6 Allergy status to analgesic agent

== ENCOUNTER 2019-07-10 00:58 | Emergency (ER) | payer OTHER ==
[~2019-07-10] VITALS: Ht 167.6 cm; Wt 121.6 kg
[2019-07-10 01:06] VITALS: Ht 167.6 cm; Wt 121.6 kg
[2019-07-10 01:45] LABS: microscopic required? YES; urine erythrocyte TRACE (NEGATIVE)
[2019-07-10 01:59] LABS: CALCIUM 9.2 mg/dL (8.5-10.1); CARBON DIOXIDE 27.8 mmol/L (21-32); CHLORIDE SERUM 104 mmol/L (98-107); CREATININE SERUM 0.6 mg/dL (0.6-1.0); GFR1 > 60 mL/min; GLUCOSE SERUM 103 mg/dL (74-106); POTASSIUM SERUM 3.7 mmol/L (3.5-5.1); SODIUM SERUM 141 mmol/L (136-145)
[2019-07-10 02:03] LABS: ALBUMIN 3.7 g/dL (3.4-5.0); ALKALINE PHOSPHATASE 71 U/L (46-116); ALT/SGPT 31 U/L (14-59); AST/SGOT 12 U/L (15-37); BILIRUBIN TOTAL 0.23 mg/dL (0.20-1.00); LIPASE 176 IU/L (73-393); TOTAL PROTEIN, SERUM 7.5 g/dL (6.4-8.2)
[2019-07-10 02:17] LABS: BASOPHIL % 0.6 % (0-2); PLATELET COUNT 279 x10^3mcL (130-400)
[2019-07-10 02:19] LABS: RED CELL DISTRIBUTION WIDTH 16.5 % (11.5-14.5)
[2019-07-10 02:42] VITALS: BP 123/66
== END 2019-07-10 02:42 | disposition home or self-care (01) ==
LOC: ED 00:58
PROVIDERS: Emergency Medicine
DX: R10.9 Unspecified abdominal pain (principal); R11.2 Nausea with vomiting, unspecified; E11.9 Type 2 diabetes mellitus without complications; G43.909 Migraine, unspecified, not intractable, without status migrainosus; F32.9 Major depressive disorder, single episode, unspecified; F41.9 Anxiety disorder, unspecified; Z90.89 Acquired absence of other organs; Z90.49 Acquired absence of other specified parts of digestive tract; Z87.442 Personal history of urinary calculi; Z98.890 Other specified postprocedural states; Z88.6 Allergy status to analgesic agent; Z88.8 Allergy status to other drugs, medicaments and biological substances
CPT/HCPCS: J2270; J2405; J7030

== ENCOUNTER 2019-08-17 21:24 | Emergency (ER) | payer OTHER ==
[~2019-08-17] VITALS: Ht 170.2 cm; Wt 122.5 kg
[2019-08-17 21:30] VITALS: Ht 170.2 cm; Wt 122.5 kg
[2019-08-17 22:59] VITALS: BP 123/68
== END 2019-08-17 22:59 | disposition home or self-care (01) ==
LOC: ED 21:24
DX: R60.0 Localized edema (principal); M79.642 Pain in left hand; E11.40 Type 2 diabetes mellitus with diabetic neuropathy, unspecified; G43.909 Migraine, unspecified, not intractable, without status migrainosus; F31.9 Bipolar disorder, unspecified; Z87.19 Personal history of other diseases of the digestive system; Z90.89 Acquired absence of other organs; Z90.49 Acquired absence of other specified parts of digestive tract; Z98.890 Other specified postprocedural states; Z88.6 Allergy status to analgesic agent; Z88.8 Allergy status to other drugs, medicaments and biological substances

== ENCOUNTER 2020-08-08 21:10 | Emergency (ER) | payer OTHER ==
[~2020-08-08] VITALS: Ht 167.6 cm; Wt 106.6 kg
[2020-08-08 21:12] VITALS: Ht 167.6 cm; Wt 106.6 kg
[2020-08-09 00:01] LABS: CALCIUM 9.1 mg/dL (8.5-10.1); CARBON DIOXIDE 27.6 mmol/L (21-32); CHLORIDE SERUM 104 mmol/L (98-107); CREATININE SERUM 0.7 mg/dL (0.6-1.0); GFR1 > 60 mL/min; GLUCOSE SERUM 126 mg/dL (74-106); SODIUM SERUM 143 mmol/L (136-145)
[2020-08-09 00:04] LABS: ALBUMIN 3.8 g/dL (3.4-5.0); ALKALINE PHOSPHATASE 99 U/L (46-116); ALT/SGPT 42 U/L (14-59); AST/SGOT 26 U/L (15-37); BILIRUBIN TOTAL 0.6 mg/dL (0.20-1.00); LIPASE 86 IU/L (73-393); TOTAL PROTEIN, SERUM 7.2 g/dL (6.4-8.2)
[2020-08-09 00:23] LABS: BASOPHIL % 0.5 % (0-2); PLATELET COUNT 245 x10^3mcL (130-400); RED CELL DISTRIBUTION WIDTH 13.9 % (11.5-14.5)
[2020-08-09 03:18] VITALS: BP 122/78
== END 2020-08-09 03:18 | disposition home or self-care (01) ==
LOC: ED 21:10
PROVIDERS: Emergency Medicine
DX: K31.89 Other diseases of stomach and duodenum (principal); E11.43 Type 2 diabetes mellitus with diabetic autonomic (poly)neuropathy; K31.84 Gastroparesis; G43.909 Migraine, unspecified, not intractable, without status migrainosus; E87.6 Hypokalemia; Z88.6 Allergy status to analgesic agent; Z88.8 Allergy status to other drugs, medicaments and biological substances; Z98.890 Other specified postprocedural states
CPT/HCPCS: J2270; J2405; J3480; J7030

== ENCOUNTER 2020-08-19 19:48 | Emergency (ER) | payer OTHER ==
[~2020-08-19] VITALS: Ht 167.6 cm; Wt 105.2 kg
[2020-08-19 20:17] VITALS: Ht 167.6 cm; Wt 105.2 kg
[2020-08-19 23:39] VITALS: BP 140/82
== END 2020-08-19 23:39 | disposition home or self-care (01) ==
LOC: ED 19:48
DX: S83.92XA Sprain of unspecified site of left knee, initial encounter (principal); S39.012A Strain of muscle, fascia and tendon of lower back, initial encounter; E11.9 Type 2 diabetes mellitus without complications; G43.909 Migraine, unspecified, not intractable, without status migrainosus; Z88.6 Allergy status to analgesic agent; Z88.8 Allergy status to other drugs, medicaments and biological substances; Z90.49 Acquired absence of other specified parts of digestive tract; Z90.89 Acquired absence of other organs; W18.30XA Fall on same level, unspecified, initial encounter; Y93.89 Activity, other specified; Y92.89 Other specified places as the place of occurrence of the external cause; Y99.8 Other external cause status

== ENCOUNTER 2020-11-07 22:44 | Inpatient (IN) | payer OTHER ==
[~2020-11-07] VITALS: Ht 167.6 cm; Wt 100.2 kg
[2020-11-07 22:53] VITALS: Ht 167.6 cm; Wt 100.2 kg
[2020-11-08 03:17] LABS: BASOPHIL % 0.6 % (0.2-1.3); PLATELET COUNT 285 x10^3mcL (179-408)
[2020-11-08 03:20] LABS: RED CELL DISTRIBUTION WIDTH 14.8 % (12.3-17.7)
[2020-11-08 03:33] LABS: ALBUMIN 3.7 g/dL (3.4-5.0); ALKALINE PHOSPHATASE 84 U/L (46-116); ALT/SGPT 27 U/L (14-59); AST/SGOT 17 U/L (15-37); BILIRUBIN TOTAL 0.23 mg/dL (0.20-1.00); CALCIUM 9.1 mg/dL (8.5-10.1); CARBON DIOXIDE 26.6 mmol/L (21-32); CHLORIDE SERUM 103 mmol/L (98-107); CREATININE SERUM 0.8 mg/dL (0.6-1.0); GFR1 > 60 mL/min; LIPASE 81 IU/L (73-393); SODIUM SERUM 142 mmol/L (136-145); TOTAL PROTEIN, SERUM 7.4 g/dL (6.4-8.2)
[2020-11-08 03:37] LABS: GLUCOSE SERUM 52 mg/dL (74-106); POTASSIUM SERUM 2.5 mmol/L (3.5-5.1)
[2020-11-08 03:37] LABS: UA SPECIFIC GRAVITY >=1.030 (1.005-1.035); microscopic required? YES; urine erythrocyte NEGATIVE (NEGATIVE)
--- NOTE | 2020-11-08 07:19 | NUR ---
RECEIVED REPORT FROM RIMA CISNEROS WILL RESUME CARE OF PT
--- NOTE | 2020-11-08 07:40 | NUR ---
CALLED PHARMACY WILL LOAN OFFICER MEDICATIONS IN 20 MIN
[2020-11-08 07:42] LABS: T3 TOTAL 1.53 ng/mL
[2020-11-08 07:43] LABS: FREE T4 1.34 ng/dL (0.76-1.46); FREE THYROXINE INDEX 4.4 ug/dL (1.4-4.5); T4(THYROXINE) 13.3 ug/dL (4.7-13.3)
--- NOTE | 2020-11-08 07:47 | NUR ---
SPOKE WITH DR. LAGUNAS IN REGARDS TO DUPLICATE ORDER FOR NS IV @ 100 ML/HR, STATED TO RUN ONLY ONE BAG OF FLUIDS, CANCEL THE FIRST ORDER,
--- NOTE | 2020-11-08 08:30 | NUR ---
PT LAYING IN BED, AAOX4, CRYING, STATING HER ABDOMINAL PAIN LEVEL WAS 9/10, MEDICATED PT PER MD PRN ORDERS, SHE ALSO STATED SHE WAS FEELING NAUSEATED, REGLAN 10 MG IV PER MD ORDER ADMININSTERED, PT TOLERATED WELL, VSS, WILL MONITOR.
--- NOTE | 2020-11-08 08:35 | NUR ---
REPORT GIVEN TO SHANTELL CISNEROS
--- NOTE | 2020-11-08 12:36 | NUR ---
PATIENT HAD COMPLAINT OF PAIN AND WAS GIVEN PRN NORCO, PATIENT WAS ALSO GIVEN JUICE FOR BG OF 66. WILL CONTINUE MONITORING.
[2020-11-08 13:48] VITALS: BP 113/68
[2020-11-08 13:56] VITALS: BP 113/68
[2020-11-08 14:25] LABS: BASOPHIL % 1.6 % (0.2-1.3); PLATELET COUNT 218 x10^3mcL (179-408)
[2020-11-08 14:31] LABS: CALCIUM 8.4 mg/dL (8.5-10.1); CARBON DIOXIDE 26.9 mmol/L (21-32); CHLORIDE SERUM 110 mmol/L (98-107); CREATININE SERUM 0.5 mg/dL (0.6-1.0); GFR1 > 60 mL/min; GLUCOSE SERUM 62 mg/dL (74-106); POTASSIUM SERUM 3.7 mmol/L (3.5-5.1); SODIUM SERUM 141 mmol/L (136-145)
[2020-11-08 14:42] LABS: RED CELL DISTRIBUTION WIDTH 14.8 % (12.3-17.7)
[2020-11-08 16:25] VITALS: BP 115/62
[2020-11-08 16:31] VITALS: BP 113/68
--- NOTE | 2020-11-08 18:32 | NUR ---
PATIENT BLOOD GLUCOSE 68 FOR 1430, PATIENT WAS GIVEN JUICE TO DRINK . PATIENT ALSO ASKED IF HER DIET COULD BE ADVANCED, PAGED DR TO ASK- STILL WAITING REPERTOIRE MANAGER BACK. PATIENT STILL HAS C/O NAUSEA THEREFORE WAS GIVEN ZOFRAN. PATIENT STILL HAS C/O PAIN AND WAS GIVEN PRN PAIN MED. NO OTHER COMPLAINTS AT THIS TIME. WILL ENDORSE REPORT TO NIGHTSNEFT.
--- NOTE | 2020-11-08 20:00 | NUR ---
PT. AWAKE, SITTING UP IN BED, CRYING. PT. STATED THAT SHE IS HUNGRY AND CANNOT GET ANY FOOD. PT. STATED THAT A DOCTOR TOLD HER THAT SHE COULD ASK TO HAVE HER DIET ADVANCED IF SHE WANTED TO . ORDERS CHECKED, DOCTORS NOTES CHECK. NO EXISTING DOCUMENTATION NOTED. PT. C/O INTERMITTENT ABD. PAIN, C/O NAUSEA. ABD. SOFT AND ROUND, BOWEL SOUNDS ACTIVE. BREATH SOUNDS CLEAR THROUGHOUT LUNG ARCEO, RESP. EVEN, UNLABORED. NO SOB NOTED. PT. ON RA. NSR ON MONITOR. DENIES CHESTPAIN OR DISCOMFORT. NO EDEMA NOTED TO EXTREMITIES. PEDAL PULSES STRONG. IVF NS INFUSING WELL AT 100C/HR, SITE INTACT. CALL LIGHT WITHIN REACH.
[2020-11-08 20:29] VITALS: BP 114/61
--- NOTE | 2020-11-08 20:47 | NUR ---
DR. KELLIE BRO. MADE AWARE THAT PATIENT IS ASKING ABOUT ADVANCING HER DIET AND IMQUIRING ABOUT CHANGING HER PAIN MEDICATION. DR. HERNANDEZ MADE ROUNDS AND SPOKE WITH THE PATIENT. HE MADE HER AWARE THAT SHE HAS A GI CONSULT AND THE GI DOCTOR DOES NOT WANT HER TO HAVING SOLID FOODS YET, ONLY CLEAR LIQUID DIET. PT. ALSO MADE AWARE THAT UNTIL DR SIERRA SEES HER, HE CANNOT CHANGE HER PAIN MEDICATION. PT. VERBALIZED UNDERSTANDING.
--- NOTE | 2020-11-09 01:50 | NUR ---
PT. PRESENTLY SLEEPING. EYES CLOSED. APPEARS COMFORTABLE. NO REQUEST FOR NAUSEA MEDICATION THUS FAR. NO EPISODES OF EMESIS THUS FAR. WILL CONTINUE TO MONITOR.
[2020-11-09 05:35] VITALS: BP 124/71
--- NOTE | 2020-11-09 07:21 | NUR ---
PT. WITH NO C/O NAUSEA THIS MORNING. MOSTLY SLEEPY. NO C/O PAIN. IVF NS INFUSING AT 100CC/HR, SITE INTACT. CALL LIGHT WITHIN REACH. REPORT GIVEN TO INCOMING NURSE.
--- NOTE | 2020-11-09 07:30 | NUR ---
PT IS AAOX4. TELE [address] READING NSR. LUNG SOUNDS CTA, ON R/A, NO COUGH OR SOB. ABDOMEN ROUND, OBESE, TENDER. BOWEL SOUNDS ACTIVE X4 QUADS. DENIES N/V/D/C AT THIS TIME. PT TOLERATING CLEAR LIQUID DIET WITH NO C/O. IV CATH TO LAC FLUSHED AND PATENT. SITE WNL. BED IN LOWEST POSITION. CALL LIGHT WITHIN REACH.
[2020-11-09 07:57] LABS: BASOPHIL % 0.7 % (0.2-1.3); PLATELET COUNT 205 x10^3mcL (179-408)
[2020-11-09 08:03] LABS: RED CELL DISTRIBUTION WIDTH 14.8 % (12.3-17.7)
[2020-11-09 08:23] LABS: CALCIUM 8.4 mg/dL (8.5-10.1); CARBON DIOXIDE 25.2 mmol/L (21-32); CHLORIDE SERUM 111 mmol/L (98-107); CREATININE SERUM 0.7 mg/dL (0.6-1.0); GFR1 > 60 mL/min; GLUCOSE SERUM 61 mg/dL (74-106); MAGNESIUM 2.1 mg/dL (1.8-2.4); PHOSPHOROUS 4.4 mg/dL (2.5-4.9); POTASSIUM SERUM 3.6 mmol/L (3.5-5.1); SODIUM SERUM 144 mmol/L (136-145)
[2020-11-09 08:36] VITALS: BP 116/77
--- NOTE | 2020-11-09 09:21 | NUR ---
SCHEDULED MEDS GIVEN AND TOLERATED WELL. PT DENIES PAIN. DENIES N/V AFTER CONSUMING ENSURE FOR BREAKFAST. PT DENIES S/S LOW BLOOD SUGAR, DENIES BEING COLD AND CLAMMY, DIZZY, WEAK. PT ENCOURAGED TO COMPLETE BREAKFAST. PT EDUCATED TO REPORT S/S OF LOW BLOOD SUGAR. PT VERBALIZED UNDERSTANDING. DENIES PAIN. CALL LIGHT WITHIN REACH.
--- NOTE | 2020-11-09 12:30 | NUR ---
REGLAN IVP AND SENOKOT PO GIVEN. IV FLUIDS REPLENISHED. CALL LIGHT WITHIN REACH.
[2020-11-09 12:36] VITALS: BP 126/73
--- NOTE | 2020-11-09 13:48 | NUR ---
ULTRAM PO PRN GIVEN ORDERED FOR H/A, AB AND CHEST PAIN ACHING 04/08. EXTRA FLUIDS GIVEN AND ENCOURATED THROUGH OUT THE DAY. PT REPOSITIONED FOR COMFORT. RESP EVEN AND UNLABORED. CALL LIGHT WITHIN REACH.
[2020-11-09 16:08] VITALS: BP 126/73
[2020-11-09] MEDS ORDERED: ULTRAM50 MG PO (16:28)
--- NOTE | 2020-11-09 16:36 | NUR ---
SPOKE TO DR. SANTILLAN HE STATED PT CAN DISCHARGE WITHOUT NARCOTIC PAIN MEDS PRESCRIPTION. PT CAN USE OVER THE COUNTER PAIN RELIEVER. IF PT WANTS AN ORDER FOR STRONGER PAIN MED SHE CAN COME BACK TO THE HOSPITAL TOMMORROW AND [facility] PRESCRIPTION.
--- NOTE | 2020-11-09 16:40 | NUR ---
PT DISCHARGED TO HOME IN NO DISTRESS, DISCHARGE INSTRUCTIONS REVIEWED. ALL QUESTIONS AND CONCERNS ADDRESSED. TELE 52 TAKEN OF PT AND RETURNED TO ORIENTOR. IV CATH TO LAC REMOVED INTACT. SITE WNL. COVERED WITH [employer] DRESSING. ALL PERSONAL BELONGINGS TAKEN WITH PT. PT WALKED TO LOBBY ACCOMPANIED BY [employer] AGENT. PT DENIES PAIN UPON DISCHARGE.
== END 2020-11-09 16:51 | disposition home or self-care (01) | DRG 48 ==
LOC: ED 22:44 → DU 11-08 04:28
PROVIDERS: Emergency Medicine; Internal Medicine; ADMIT Family Medicine; ATTEND Family Medicine
DX: E11.43 Type 2 diabetes mellitus with diabetic autonomic (poly)neuropathy (principal); E11.649 Type 2 diabetes mellitus with hypoglycemia without coma; F25.9 Schizoaffective disorder, unspecified; K31.84 Gastroparesis; Z20.822 Contact with and (suspected) exposure to COVID-19; E87.6 Hypokalemia; Z88.8 Allergy status to other drugs, medicaments and biological substances; F41.9 Anxiety disorder, unspecified; F32.9 Major depressive disorder, single episode, unspecified; E66.9 Obesity, unspecified; Z71.3 Dietary counseling and surveillance; G43.909 Migraine, unspecified, not intractable, without status migrainosus; Z90.49 Acquired absence of other specified parts of digestive tract; M79.7 Fibromyalgia; F17.210 Nicotine dependence, cigarettes, uncomplicated; Z83.3 Family history of diabetes mellitus; Z82.49 Family history of ischemic heart disease and other diseases of the circulatory system; D72.829 Elevated white blood cell count, unspecified; Z68.36 Body mass index [BMI] 36.0-36.9, adult
CPT/HCPCS: 82962; 84439; C9113; G0378; J1815; J2405; J2765; J3480; J3490; J7030; J7040